=== PATIENT | male | born 1945 | race Caucasian/White ===

== ENCOUNTER 2020-01-25 15:42 | Outpatient (CLI) | payer MEDICARE, MEDICAID, SELFPAY ==
--- NOTE | 2020-01-25 15:53 | CT_ITS ---
WS: [id number] CT CERVICAL SPINE TECHNIQUE: Noncontrast CT of the cervical spine with coronal and sagittal reformatted images. CLINICAL INFORMATION: FRACTURE OF CERVICAL SPINE COMPARISON: None. DLP: 1883.[address] scans at [facility] use at least one of these dose optimization techniques: automat ed exposure control; mA and/or kV adjustment per patient size (includes targeted exams where dose is matched to clinical indication); or iterative reconstruction. FINDINGS: Straightening of the normal cervical lordosis. Slight anterolisthesis C3 on C4 and C4 on C5. Disc spa ce narrowing worse at C5-C7. Normal C1-2 articulation. Normal dens. C2-C3: Disc osteophyte ridging. Mild right and no significant left foraminal narrowing. Spinal canal is patent. C3-C4: Slight anterolisthesis. Mild central canal stenosis. Moderate bilateral bony foraminal narrowi ng. Mild facet arthropathy. C4-C5: Moderate to severe left and no significant right foraminal narrowing. Osteophytic ridging. Mil d central canal stenosis. Mild facet arthropathy. C5-C6: Disc osteophyte complex with endplate ridging. Severe left bony foraminal narrowing. Moderate left facet arthropathy. Spinal canal is patent. C6-C7: Disc osteophyte complex with endplate ridging. Mild left foraminal narrowing. Spinal canal and right foramen are patent. C7-T1: Left eccentric disc osteophytic ridging. Mild left foraminal narrowing. Spinal canal and right foramen are patent. Visualized posterior nasopharynx: Normal. Prevertebral soft tissues: Normal. CT/CT cervical spin wo con* [id number] IMPRESSION: 1. Straightening of the normal cervical lordosis. Slight anterolisthesis C3 on C4 and C4 on C5. 2. No acute fractures. 3. Moderate spondylitic changes with disc space narrowing worse at C5-C7. 4. Severe left foraminal narrowing left C4-C5 and left C5-C6 due to osteophyti c ridging and facet arthropathy. 5. Mild central canal stenosis C3-C4 and C4-C5.
== END 2020-01-25 15:43 | disposition home or self-care (01) ==
LOC: RADWPI 15:53
PROVIDERS: Family Provider Nurse Practitioner Family; PCP Nurse Practitioner Family; Visit Provider Nurse Practitioner Family
DX: S12.9XXA Fracture of neck, unspecified, initial encounter (principal); X58.XXXA Exposure to other specified factors, initial encounter; M47.892 Other spondylosis, cervical region; M48.02 Spinal stenosis, cervical region
CPT/HCPCS: 72125

== ENCOUNTER 2020-07-15 10:16 | Emergency (ER) | payer MEDICARE, MEDICAID, SELFPAY ==
[2020-07-15 10:26] VITALS: BP 177/86; PULSE 98; RESP 20; TEMP 36.6; O2SAT 92; BMI 36.6
--- NOTE | 2020-07-15 10:30 | W.ED.SOB ---
HPI - SOB/Dyspnea General: Chief Complaint: Shortness of Breath/Dyspnea Stated Complaint: SOB Time Seen by Provider: 07/15/20 10:28 History of Present Illness: HPI Narrative: 74-year-old male presents emergency room with complaint of shortness of breath with productive cough for the last 2 months. He states it is been waxing and waning during that time but just recently it seems to be worsening. He was previously seen and evaluated started on albuterol sounds like he was also started on a combination anticholinergic steroid that he was told to use twice a day. He has been using that medicine twice a day although he does not recall the name of it. He also uses albuterol as needed and does get good relief of symptoms from it. He denies a fever. His and son have also been sick with a cough at home. He denies any hemoptysis. MD elicited complaint: shortness of breath and cough Pertinent past history: COPD Onset (ago): month(s) (2) Timing: intermittent Severity: moderate Exacerbating factors: nothing Relieving factors: bronchodilators Known history of: COPD Associated symptoms: Reports chest congestion and cough; Deny abdominal pain, chest pain, diaphoresis, dizziness, extremity pain, fever(s), hemoptysis, lightheadedness, myalgias, nausea, orthopnea, palpitations, paresthesias, polydipsia, polyuria, rash, sense of impending doom, syncope or vomiting Treatment prior to arrival: bronchodilator Review of Systems Const: Denies: fever(s) or diaphoresis ENMT: Denies: throat pain, ear or mastoid pain, nasal discharge or nasal congestion Card: Denies: chest pain, palpitations, lightheadedness, syncope or orthopnea Resp: Reports: chest congestion; Denies: hemoptysis GI: Denies: abdominal pain, nausea or vomiting : Denies: flank pain, dysuria, urinary frequency or urinary urgency Musc: Denies: extremity pain Skin/Breast: Denies: rash or pruritus Neuro: Denies: dizziness Endo: Denies: polyuria or polydipsia PFS ED PFSH: Medical History Allergic rhinitis Chronic sinusitis CKD (chronic kidney disease) COPD (chronic obstructive pulmonary disease) 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 Depression Edema Essential (primary) hypertension Gout Hyperlipemia Idiopathic peripheral neuropathy Nicotine dependence MONTEZ (obstructive sleep apnea) Osteoarthritis Surgical History H/O foot surgery H/O knee surgery History of surgery of head Family History Son Anxiety Psychiatric illness Depression Liver disease Thyroid disease Mother Lung disease Diabetes Hypertension Father Diabetes Brother Diabetes Hypertension Sister Hypertension Other Cancer Social History Smoking and tobacco status: current every day smoker smokeless tobacco Smokeless tobacco user: chewing tobacco Smokeless tobacco details: 0.5 Can Daily x 30 Years Alcohol intake: never Current occupational status: disabled Current gender identity: Male Physical Exam Const: COMMON NORMALS: no acute distress GENERAL APPEARANCE: cooperative and comfortable ORIENTATION/CONSCIOUSNESS: Yes awake, Yes oriented to person, Yes oriented to place and Yes oriented to time HENMT: COMMON NORMALS: normocephalic, atraumatic and hearing grossly normal bilaterally HEAD & SCALP: normocephalic and atraumatic Eye: COMMON NORMALS: Equal, round and reactive pupils present, EOMs intact bilaterally, conjunctivae normal and no scleral icterus CONJUNCTIVA: Yes conjunctivae normal PUPIL: Yes Equal, round and reactive pupils present Neck/C-Spine: COMMON NORMALS: full ROM, no lymphadenopathy, supple and no JVD Lymph: LYMPHATIC: no lymphadenopathy noted and no lymphedema noted Resp: COMMON NORMALS: normal respiratory effort, No retractions, No use of accessory muscles and clear to auscultation bilaterally AUSCULTATION: clear to auscultation bilaterally Cardio: COMMON NORMALS: no JVD, regular rate, regular rhythm and No murmurs present (Cardio) RATE: regular rate RHYTHM: regular rhythm GI: COMMON NORMALS: Soft to palpation and No hepatosplenomegaly present AUSCULTATION: Yes normoactive bowel sounds PALPATION: Yes Soft to palpation, No Tenderness to palpation present (GI), No Guarding due to palpation present (GI) and Yes No hepatosplenomegaly present Extremity: COMMON NORMALS: normal to inspection, capillary refill normal, no clubbing, cyanosis or edema, no calf tenderness and no pedal edema Neuro: SENSORIUM/ORIENTATION: Yes oriented to person, Yes oriented to place and Yes oriented to time Skin: COMMON NORMALS: no rashes or lesions noted GENERAL SKIN EXAM: no rashes or lesions noted Course Vital Signs: Vital signs: Vital Signs Temperature 98.9 F 07/15/20 13:54 Pulse Rate 95 07/15/20 13:54 Respiratory Rate 18 07/15/20 13:54 Blood Pressure 130/90 07/15/20 13:54 Pulse Oximetry 94 07/15/20 13:54 MDM - SOB/Dyspnea MDM Narrative: Medical decision making narrative: Reviewed labs and imaging with the patient. We will add doxycycline Medrol Dosepak continue albuterol as needed return if has problems follow-up with his primary care doctor next week. Lab Data: Labs: Lab Results 07/15/20 07/15/20 07/15/20 Range/Units 10:50 10:50 11:26 WBC 7.6 (4.0-10.0) 10^3/ uL RBC 4.69 (4.1-5.3) 10^6/u L Hgb 14.5 (11.7-16.6) g/dL Hct 44.6 (42.0-52.0) % MCV 95.1 H (80-94) fL MCH 30.9 (28.0-34.0) pg MCHC 32.5 (30.0-36.0) g/dL RDW 12.7 (12.1-15.1) % Plt Count 210 (130-400) 10^3/c mm MPV 10.6 H (7.4-10.4) fL Neut % (Auto) 72.1 % Lymph % (Auto) 18.1 % Hancock % (Auto) 7.7 % Eos % (Auto) 1.0 % Baso % (Auto) 0.7 % Neut # (Auto) 5.49 (1.8-7.7) 10^3/u L Lymph # (Auto) 1.4 (0.8-4.8) 10^3/u L Hancock # (Auto) 0.6 (0.2-0.9) 10^3/u L Eos # (Auto) 0.1 (0.0-0.8) 10^3/u L Baso # (Auto) 0.1 (0.0-0.1) 10^3/u L Nucleated RBC % (a uto) 0 % Nucleated RBCs # 0.0 /100WBC Sodium 139 (136-145) mmol/L Potassium 4.5 (3.5-5.1) mmol/L Chloride 102 (98-107) mmol/L Carbon Dioxide 30 H (22-29) mmol/L Anion Gap 11.5 (5-19) BUN 12 (8-23) mg/dL Creatinine 1.3 H (0.7-1.2) mg/dL GFR Calculation Not Reportable Glucose 111 (65-115) mg/dL Calculated Osmolal ity 285 (285-295) mOsm/k g Calcium 9.4 (8.5-10.5) mg/dL Total Bilirubin 0.3 (0.15-1.2) mg/dL AST 28 (0-40) U/L ALT 35 (0-41) U/L Alkaline Phosphata se 186 H (40-130) IU/L Total Protein 7.3 (6.6-8.7) g/dL Albumin 3.9 (3.5-5.2) g/dL Globulin 3.4 (1.3-4.6) g/dL Urine Color Yellow (Yellow) Urine Appearance Clear (CLEAR) Urine pH 7 (5-7) Ur Specific Gravit y 1.005 (1.005-1.030) Urine Protein Neg (Negative) Urine Glucose (UA) Norm (Normal) Urine Ketones Negative (Negative) Urine Blood Neg (Negative) Urine Nitrate Negative (Negative) Urine Bilirubin Neg (NEGATIVE) Urine Urobilinogen Norm (Negative) mg/dL Ur Leukocyte Olga Lidia ase Negative (Negative) Discharge Plan Discharge Patient Disposition: Home Clinical Impression: Acute exacerbation of chronic obstructive airways disease Condition: Stable Prescriptions: New doxycycline hyclate 100 mg capsule 100 mg PO BID 10 Days Qty: 20 RF: 0 Medrol (Simón) 4 mg tablets,dose pack See Rx Instructions .ROUTE .COMPLEX Qty: 21 RF: 0 No Action ketotifen fumarate [Alaway] 0.025 % (0.035 %) drops 1 drop ophthalmic (eye) BID RF: 0 allopurinol 300 mg tablet 150 mg PO DAILY RF: 0 aspirin [Adult Aspirin Regimen] 81 mg tablet,delayed release (DR/EC) 81 mg PO DAILY RF: 0 bumetanide 2 mg tablet 2 mg PO DAILY RF: 0 diclofenac sodium 75 mg tablet,delayed release (DR/EC) 75 mg PO BID RF: 0 doxazosin 4 mg tablet 4 mg PO DAILY RF: 0 gabapentin 600 mg tablet 600 mg PO TID RF: 0 metoprolol tartrate 50 mg tablet 50 mg PO BID RF: 0 polyethylene glycol 3350 [Miralax] 17 gram/dose powder 17 gm PO DAILY RF: 0 misoprostol 200 mcg tablet 400 mcg PO BID RF: 0 montelukast [Singulair] 10 mg tablet 10 mg PO DAILY RF: 0 paroxetine HCl 20 mg tablet 20 mg PO DAILY RF: 0 potassium chloride 10 mEq capsule, extended release 10 meq PO DAILY RF: 0 albuterol sulfate [ProAir HFA] 90 mcg/actuation HFA aerosol inhaler 2 puff INHALATION Q4H PRN (Reason: Shortness Of Breath) RF: 0 rosuvastatin 20 mg tablet 20 mg PO DAILY RF: 0 Spiriva with HandiHaler 18 mcg capsule, w/inhalation device 1 cap INHALATION DAILY RF: 0 tramadol 50 mg tablet 50 mg PO Q8H PRN (Reason: Pain) RF: 0 fluticasone propion-salmeterol [Wixela Inhub] 250-50 mcg/dose blister with device 1 inh INHALATION BID RF: 0 Vitamin B-12 1,000 mcg Tablet See Rx Instructions .ROUTE .COMPLEX RF: 0 Discharge Orders: Discharge Order (Routine); Ordered 07/15/20 Ordered By: Yaw Gasca Referrals: Juany Velazquez, NUCLEAR CRITICALITY SAFETY ENGINEER-C [Primary Care Provider] - Discharge Diet: Usual diet Discharge Activity: Resume usual activity Activity Restrictions/Additional Instructions: Case management will call you with a referral to pulmonology Discharge Date/Time: 07/15/20 13:57 Coding Level of Care Code ED Grain Manager for Chg Fwd Exam Comprehensive
[2020-07-15 10:34] VITALS: BP 117/86; PULSE 95; RESP 18; TEMP 36.8; O2SAT 95
--- NOTE | 2020-07-15 10:39 | ECG_ITS ---
[facility] Test Date: 2020-07-15 Pat Name: Marcelo Loyola Department: Room: Gender: Male Volunteer Manager: : 1945 Requested By: Yaw Chapa Order Number: [id number] Shannon MD: Elba Polo M.D. Measurements Intervals [place] Rate: 93 P: 6 GA: 177 QRS: -4 QRSD: 94 T: 63 QT: 344 QTc: 429 Interpretive Statements SINUS RHYTHM NONSPECIFIC T-WAVE ABNORMALITY No previous ECG available for comparison Electronically Signed On 07-15-2020 11:32:02 CDT by Elba Polo M.D. [id number]
--- NOTE | 2020-07-15 10:40 | XR_ITS ---
WS: [id number] Portable AP upright chest, 07/15/2020 Clinical Data: dyspnea/cough Comparison: None. Findings: No nodules, masses or effusions are seen. The heart is normal. The pulmonary vascularity is not increased. No pneumonia or pneumothorax is seen. There is patchy atelectasis along with slight v olume loss in the right lower lobe. There may be a small right effusion. Aortic arch and descending a yomaira are tortuous. Degenerative change of the shoulders is present. XR/XR chest 1V portable [id number] Impression: 1. Patchy atelectasis and volume loss in the right lung base. 2. Recommend follow-up PA and lateral chest in one day.
[2020-07-15 10:58] LABS: Basophils # 0.1 10^3/uL (0.0-0.1); Basophils % 0.7 %; Eosinophils # 0.1 10^3/uL (0.0-0.8); Hematocrit 44.6 % (42.0-52.0); Hemoglobin 14.5 g/dL (11.7-16.6); Lymphocytes # 1.4 10^3/uL (0.8-4.8); Lymphocytes % 18.1 %; Mean Corpuscular HGB Conc 32.5 g/dL (30.0-36.0); Mean Corpuscular Hemoglobin 30.9 pg (28.0-34.0); Mean Corpuscular Volume 95.1 fL (80-94); Mean Platelet Volume 10.6 fL (7.4-10.4); Monocytes # 0.6 10^3/uL (0.2-0.9); Monocytes % 7.7 %; Neutrophils # 5.49 10^3/uL (1.8-7.7); Neutrophils % 72.1 %; Nucleated Red Blood Cells % 0 %; Platelet Count 210 10^3/cmm (130-400); Red Blood Count 4.69 10^6/uL (4.1-5.3); Red Cell Distribution Width 12.7 % (12.1-15.1); White Blood Count 7.6 10^3/uL (4.0-10.0)
--- NOTE | 2020-07-15 11:07 | CT_ITS ---
WS: [id number] CTA OF THE CHEST WITH PULMONARY EMBOLISM PROTOCOL TECHNIQUE: High-resolution contrast enhanced CTA of the chest with coronal and sagittal reformatted i mages with pulmonary embolism protocol. MIP images are also reviewed. CLINICAL INFORMATION: dyspnea COMPARISON: None. DLP: 845.[address] scans at [facility] use at least one of these dose optimization techniques: automat ed exposure control; mA and/or kV adjustment per patient size (includes targeted exams where dose is matched to clinical indication); or iterative reconstruction. FINDINGS:Images degraded by respiratory motion and suboptimal bolus. Proximal main pulmonary arteries are normal. Segmental and subsegmental pulmonary arteries are subopt imally visualized but appear patent. No evidence of pulmonary embolus. Normal caliber thoracic aorta. Aortic calcification. Coronary calcification. Subsegmental atelectasis right lower lobe. Mild chronic emphysematous changes. A few calcified granul omas right lower lobe. No mediastinal or hilar lymphadenopathy. No axillary lymphadenopathy. Normal liver. Gallbladder is contracted. Splenic granulomas. Small esophageal hiatal hernia. CT/CT angio chest PE protcl [id number] IMPRESSION: 1. Proximal main pulmonary arteries are patent. Segmental and subsegmental pul monary arteries suboptimally visualized. No evidence of pulmonary embolus proxi yee. 2. Elevation hemidiaphragm with volume loss right lung base. Subsegmental atel ectasis right lower lobe. 3. No acute pulmonary infiltrates. 4. Mild chronic emphysematous changes. 5. No mediastinal or hilar lymphadenopathy. Notified Yaw Gasca DO at 07/15/2020 1:26 PM.
[2020-07-15 11:24] LABS: Alanine Aminotransferase 35 U/L (0-41); Albumin Level 3.9 g/dL (3.5-5.2); Alkaline Phosphatase 186 IU/L (40-130); Anion Gap 11.5 (5-19); Aspartate Amino Transferase 28 U/L (0-40); Blood Urea Nitrogen 12 mg/dL (8-23); Calcium 9.4 mg/dL (8.5-10.5); Carbon Dioxide 30 mmol/L (22-29); Chloride 102 mmol/L (98-107); Globulin 3.4 g/dL (1.3-4.6); Glucose 111 mg/dL (65-115); Osmolality Calculated 285 mOsm/kg (285-295); Potassium 4.5 mmol/L (3.5-5.1); Sodium 139 mmol/L (136-145); Total Bilirubin 0.3 mg/dL (0.15-1.2); Total Protein 7.3 g/dL (6.6-8.7)
[2020-07-15 11:32] LABS: Add Urine Microscopic? NO
[2020-07-15 11:36] LABS: Bilirubin Urine Neg (NEGATIVE); Blood Urine Neg (Negative); Glucose Urine UA Norm (Normal); Ketones Urine Negative (Negative); Leukocyte Esterase Urine Negative (Negative); Nitrate Urine Negative (Negative); Protein Urine Neg (Negative); Specific Gravity, Urine 1.005 (1.005-1.030); Urine Appearance Clear (CLEAR); Urine Color Yellow (Yellow); Urobilinogen Urine Norm (Negative); pH Urine 7 (5-7)
[2020-07-15 11:45] VITALS: BP 121/87; PULSE 95; RESP 20; TEMP 36.8; O2SAT 95
[2020-07-15 12:30] VITALS: BP 120/70; PULSE 80; RESP 16; O2SAT 95
[2020-07-15] MEDS: iodixanol 320 mg/mL 100mL Btl IV (12:40)
[2020-07-15 13:14] VITALS: BP 130/86; PULSE 90; RESP 18; O2SAT 93
[2020-07-15 13:54] VITALS: BP 130/90; PULSE 95; RESP 18; TEMP 37.2; O2SAT 94
--- NOTE | 2020-07-18 11:06 | DCPLANNER ---
field marketing manager had message to schedule a follow up appointment for patient with pulmonolgy. field marketing manager called [facility], spoke with Kya, gave clinic patients information, a follow up appointment was scheduled for Monday July 20, 2020 at 8:45. field marketing manager spoke with patient and gave him the appointment information. Patient stated that he would attend the appointment.
--- NOTE | 2020-07-19 08:47 | PC.NURSE ---
Patient called and placed on Levaquin 750 mg daily for [address] Gasca after reviewing patients sputum culture. Prescription sent to [facility] in [place], [place].
--- NOTE | 2020-08-16 08:09 | DCPLANNER ---
Patient had a follow up appointment scheduled for 07.20.20 with [facility] - patient did attend the appointment.
== END 2020-07-15 13:57 | disposition home or self-care (01) ==
PROVIDERS: Emergency Provider Family Medicine; PCP Nurse Practitioner Family
DX: J44.1 Chronic obstructive pulmonary disease with (acute) exacerbation (principal); Z79.82 Long term (current) use of aspirin; I10 Essential (primary) hypertension; E78.5 Hyperlipidemia, unspecified; F17.220 Nicotine dependence, chewing tobacco, uncomplicated
CPT/HCPCS: 12345; 71045; 71275; 80053; 81003; 85025; 87070; 87205; 93005; 99284; Q9967

== ENCOUNTER 2020-07-20 10:59 | Outpatient (CLI) | payer MEDICARE, MEDICAID, SELFPAY ==
--- NOTE | 2020-07-20 11:04 | XRR_ITS ---
PROCEDURE INFORMATION: Exam: XR Chest, 2 Views Exam date and time: 07/20/2020 11:22 AM Age: 74 years old Clinical indication: Patient HX: Shortness of breath; . HX of copd with exacerbation; Additional info: Pneumonia TECHNIQUE: Imaging protocol: XR of the chest Views: 2 views. COMPARISON: CR XR chest 1V portable [id number] 07/15/2020 10:50 AM FINDINGS: Lungs: Interstitial prominence and chronic granulomatous disease. Subsegmental right basilar atelectasis in association with asymmetric elevation of the right hemidiaphragm. Pleural space: No significant pleural effusion. Heart/Mediastinum: No cardiomegaly. Vasculature: Ectasia of the thoracic aorta. Bones/joints: osteopenia and degenerative change. XR/XR chest 2V* [id number] IMPRESSION: Subsegmental right basilar atelectasis in association with asymmetric elevation of the right hemidiaphragm.
== END 2020-07-20 11:00 | disposition home or self-care (01) ==
LOC: RAD 11:03
PROVIDERS: PCP Nurse Practitioner Family; Visit Provider Internal Medicine Pulmonary Disease
DX: J18.9 Pneumonia, unspecified organism (principal); J98.11 Atelectasis
CPT/HCPCS: 71046

== ENCOUNTER → 2020-08-12 11:49 | Outpatient (BNVA) | payer MEDICARE, MEDICAID, SELFPAY | PROVIDERS: PCP Nurse Practitioner Family; Visit Provider Internal Medicine | DX: J44.9 Chronic obstructive pulmonary disease, unspecified (principal); Z20.828 Contact with and (suspected) exposure to other viral communicable diseases | CPT/HCPCS: 87635 ==

== ENCOUNTER 2020-08-26 18:07 | Emergency (ER) | payer MEDICARE, MEDICAID, SELFPAY ==
[2020-08-26] VITALS (7 sets, daily range): BP systolic 119–152; BP diastolic 59–103; PULSE 70–83; RESP 14–22; TEMP 36.6; O2SAT 91–94; BMI 35.4
--- NOTE | 2020-08-26 21:35 | XRR_ITS ---
PROCEDURE INFORMATION: Exam: XR Chest, 1 View Exam date and time: 08/26/2020 9:36 PM Age: 75 years old Clinical indication: Shortness of breath; Patient HX: SOB; Additional info: Cough, SOB TECHNIQUE: Imaging protocol: XR of the chest Views: 1 view. COMPARISON: CR XR chest 2V* [id number] 07/20/2020 11:15 AM FINDINGS: Lungs: Unremarkable. No consolidation. Pleural space: Large right pleural effusion. Heart/Mediastinum: Cardiomegaly. Bones/joints: Unremarkable. XR/XR chest 1V portable [id number] IMPRESSION: 1. Large right pleural effusion. 2. Cardiomegaly.
--- NOTE | 2020-08-26 21:35 | ECG_ITS ---
[facility] Test Date: 2020-08-26 Pat Name: Marcelo Loyola Department: Room: Gender: Male Slag Skimmer: : 1945 Requested By: Bre Chapa Order Number: [id number] Shannon MD: Elba Polo M.D. Measurements Intervals [employer] Rate: 69 P: 89 CT: 189 QRS: 12 QRSD: 102 T: 73 QT: 365 QTc: 392 Interpretive Statements SINUS RHYTHM WITH OCCASIONAL SUPRAVENTRICULAR PREMATURE COMPLEXES NONSPECIFIC T-WAVE ABNORMALITY Compared to ECG 07/15/2020 10:55:30 No significant changes Electronically Signed On 08-27-2020 17:57:12 CDT by Elba Polo M.D. [id number]
[2020-08-26 22:07] LABS: Basophils # 0.1 10^3/uL (0.0-0.1); Basophils % 0.7 %; Eosinophils # 0.1 10^3/uL (0.0-0.8); Eosinophils % 1.5 %; Hematocrit 43.7 % (42.0-52.0); Hemoglobin 14.1 g/dL (11.7-16.6); Lymphocytes # 1.9 10^3/uL (0.8-4.8); Lymphocytes % 21.2 %; Mean Corpuscular HGB Conc 32.3 g/dL (30.0-36.0); Mean Corpuscular Hemoglobin 30.7 pg (28.0-34.0); Mean Corpuscular Volume 95.2 fL (80-94); Mean Platelet Volume 10.5 fL (7.4-10.4); Monocytes # 0.8 10^3/uL (0.2-0.9); Monocytes % 8.6 %; Neutrophils # 6.22 10^3/uL (1.8-7.7); Neutrophils % 67.8 %; Nucleated Red Blood Cells % 0 %; Platelet Count 206 10^3/cmm (130-400); Red Blood Count 4.59 10^6/uL (4.1-5.3); Red Cell Distribution Width 12.9 % (12.1-15.1); White Blood Count 9.2 10^3/uL (4.0-10.0)
--- NOTE | 2020-08-26 22:39 | ED_ITS ---
HPI - SOB/Dyspnea General: Chief Complaint: Shortness of Breath/Dyspnea Stated Complaint: SOB Time Seen by Provider: 08/26/20 21:04 History of Present Illness: HPI Narrative: This patient is a 75-year-old male presenting today with shortness of breath. He said he thinks he has pneumonia. He has not had a fever. He coughs up yellow phlegm. This been going on for several weeks. He said he actually was in the hospital with pneumonia in June and feels like he is never really gotten better. His notes that he got little better while he was on the antibiotics but then worsened again. He has no known exposures to COVID. His family members were around him and had fevers but they had negative COVID tests and were diagnosed with pneumonia. He denies chest pain. He has had some swelling in his legs in the past but not currently. He takes a fluid pill. He sees Dr. Gonsalez for his heart. He says his only heart problem is that his heart rate is slow at times. MD elicited complaint: shortness of breath and cough Pertinent past history: pneumonia Severity: moderate Exacerbating factors: lying flat and exertion Relieving factors: upright position Associated symptoms: Deny abdominal pain, chest pain, fever(s), nausea or vomiting Review of Systems General: Reports: 10 or more systems reviewed and unremarkable except in HPI and below Const: Denies: fever(s), chills, fatigue or malaise Eyes: Denies: change in vision ENMT: Denies: odynophagia Card: Denies: chest pain or swelling of feet/ankles Resp: Reports: dyspnea and productive cough; Denies: non-productive cough GI: Denies: abdominal pain, nausea or vomiting : Denies: flank pain Musc: Denies: neck pain or back pain Skin/Breast: Denies: rash Neuro: Denies: headache(s), numbness in extremities or weakness in extremities Stalin/Lymph: Denies: easy bruising or easy bleeding PFSH ED PFSH: Medical History Allergic rhinitis Chronic sinusitis CKD (chronic kidney disease) COPD (chronic obstructive pulmonary disease) Coronary arteriosclerosis in [place] artery Depression Edema Essential (primary) hypertension Gout Hyperlipemia Idiopathic peripheral neuropathy Nicotine dependence MONTEZ (obstructive sleep apnea) Osteoarthritis Surgical History H/O foot surgery H/O knee surgery History of surgery of head Family History Son Anxiety Psychiatric illness Depression Liver disease Thyroid disease Mother Lung disease Diabetes Hypertension Father Diabetes Brother Diabetes Hypertension Sister Hypertension Other Cancer Social History Smoking and tobacco status: current every day smoker smokeless tobacco Smokeless tobacco user: chewing tobacco Smokeless tobacco details: 0.5 Can Daily x 30 Years - Hx of 5 ciggs daily x 15 years - Quit in 1979 Alcohol intake: never Lives independently: Yes Household members: spouse Marital status: Current occupational status: disabled History of recent travel: No Current gender identity: Male Physical Exam Const: COMMON NORMALS: no acute distress, patient oriented x3, no limitations and alert GENERAL APPEARANCE: cooperative and comfortable HENMT: HEAD & SCALP: normal to inspection FACE & SINUS: normal facial exam Eye: GENERAL EYE: appearance normal, both eyes and all related structures Neck/C-Spine: COMMON NORMALS: supple, no meningeal signs and no JVD Chest: COMMONS NORMALS: normal inspection of the chest Resp: COMMON NORMALS: No use of accessory muscles and clear to auscultation bilaterally EFFORT & INSPECTION: Yes tachypneic AUSCULTATION: clear to auscultation bilaterally and diminished lung sounds on the right Cardio: COMMON NORMALS: no JVD, regular rate, regular rhythm and No murmurs present (Cardio) RATE: regular rate RHYTHM: regular rhythm GI: COMMON NORMALS: Normal to inspection, nondistended, normoactive bowel sounds present, Soft to palpation and non-tender INSPECTION: Yes normal to inspection AUSCULTATION: Yes normoactive bowel sounds PALPATION: Yes Soft to palpation Back/Pelvis: COMMON NORMALS: thoracic and lumbar spine normal to inspection Extremity: COMMON NORMALS: normal to inspection Neuro: COMMON NORMALS: patient oriented x3, moves all extremities, no focal motor deficits and no sensory deficits noted SENSORIUM/ORIENTATION: Yes alert MENINGEAL SIGNS: Yes no meningeal signs Psych: COMMON NORMALS: mental status grossly normal, cooperative and normal affect Skin: COMMON NORMALS: no rashes or lesions noted and turgor normal GENERAL SKIN EXAM: no rashes or lesions noted and turgor normal Course ED course: Patient's chest x-ray shows a right pleural effusion. His labs are still pending. I spoke with him about whether he felt like his breathing was bad enough to be admitted to the hospital and he said no. His agreed. Await for the rest of his test results but as long as there is nothing unexpected there we can probably let him go home and plan for close outpatient follow-up. He has seen the medical bill processor here before. Vital Signs: Vital signs: Vital Signs Temperature 98.1 F 08/27/20 01:49 Pulse Rate 76 08/27/20 01:49 Respiratory Rate 20 H 08/27/20 01:49 Blood Pressure 128/90 08/27/20 01:49 Pulse Oximetry 93 08/27/20 01:49 MDM - SOB/Dyspnea Lab Data: Labs: Lab Results 08/26/20 08/26/20 08/26/20 Range/Units 21:57 21:57 21:57 WBC 9.2 (4.0-10.0) 10^3/ uL RBC 4.59 (4.1-5.3) 10^6/u L Hgb 14.1 (11.7-16.6) g/dL Hct 43.7 (42.0-52.0) % MCV 95.2 H (80-94) fL MCH 30.7 (28.0-34.0) pg MCHC 32.3 (30.0-36.0) g/dL RDW 12.9 (12.1-15.1) % Plt Count 206 (130-400) 10^3/c mm MPV 10.5 H (7.4-10.4) fL Neut % (Auto) 67.8 % Lymph % (Auto) 21.2 % [place] % (Auto) 8.6 % Eos % (Auto) 1.5 % Baso % (Auto) 0.7 % Neut # (Auto) 6.22 (1.8-7.7) 10^3/u L Lymph # (Auto) 1.9 (0.8-4.8) 10^3/u L [place] # (Auto) 0.8 (0.2-0.9) 10^3/u L Eos # (Auto) 0.1 (0.0-0.8) 10^3/u L Baso # (Auto) 0.1 (0.0-0.1) 10^3/u L Nucleated RBC % (a uto) 0 % Nucleated RBCs # 0.0 /100WBC Sodium 139 (136-145) mmol/L Potassium 4.1 (3.5-5.1) mmol/L Chloride 101 (98-107) mmol/L Carbon Dioxide 27 (22-29) mmol/L Anion Gap 15.1 (5-19) BUN 14 (8-23) mg/dL Creatinine 1.3 H (0.7-1.2) mg/dL GFR Calculation Not Reportable Glucose 99 (65-115) mg/dL Calculated Osmolal ity 289 (285-295) mOsm/k g Calcium 9.7 (8.5-10.5) mg/dL Total Bilirubin 0.3 (0.15-1.2) mg/dL AST 18 (0-40) U/L ALT 14 (0-41) U/L Alkaline Phosphata se 185 H (40-130) IU/L Troponin T Baselin e 21 H (0-15) ng/L Troponin T 120 Min solomon Delta Troponin T NT-Pro-B Natriuret Pep 161 H (0-125) pg/mL Total Protein 6.7 (6.6-8.7) g/dL Albumin 4.1 (3.5-5.2) g/dL Globulin 2.6 (1.3-4.6) g/dL 08/26/20 08/27/20 Range/Units 23:37 00:25 WBC (4.0-10.0) 10^3/ uL RBC (4.1-5.3) 10^6/u L Hgb (11.7-16.6) g/dL Hct (42.0-52.0) % MCV (80-94) fL MCH (28.0-34.0) pg MCHC (30.0-36.0) g/dL RDW (12.1-15.1) % Plt Count (130-400) 10^3/c mm MPV (7.4-10.4) fL Neut % (Auto) % Lymph % (Auto) % [place] % (Auto) % Eos % (Auto) % Baso % (Auto) % Neut # (Auto) (1.8-7.7) 10^3/u L Lymph # (Auto) (0.8-4.8) 10^3/u L [place] # (Auto) (0.2-0.9) 10^3/u L Eos # (Auto) (0.0-0.8) 10^3/u L Baso # (Auto) (0.0-0.1) 10^3/u L Nucleated RBC % (a uto) % Nucleated RBCs # /100WBC Sodium (136-145) mmol/L Potassium (3.5-5.1) mmol/L Chloride (98-107) mmol/L Carbon Dioxide (22-29) mmol/L Anion Gap (5-19) BUN (8-23) mg/dL Creatinine (0.7-1.2) mg/dL GFR Calculation Glucose (65-115) mg/dL Calculated Osmolal ity (285-295) mOsm/k g Calcium (8.5-10.5) mg/dL Total Bilirubin (0.15-1.2) mg/dL AST (0-40) U/L ALT (0-41) U/L Alkaline Phosphata se (40-130) IU/L Troponin T Baselin e (0-15) ng/L Troponin T 120 Min solomon Cancelled 18.32 H Delta Troponin T Cancelled -2.68 L NT-Pro-B Natriuret Pep (0-125) pg/mL Total Protein (6.6-8.7) g/dL Albumin (3.5-5.2) g/dL Globulin (1.3-4.6) g/dL Discharge Plan Discharge Patient Disposition: Home Clinical Impression: Pleural effusion on right Condition: Stable Prescriptions: No Action ketotifen fumarate [Alaway] 0.025 % (0.035 %) drops 1 drop ophthalmic (eye) BID RF: 0 allopurinol 300 mg tablet 150 mg PO DAILY RF: 0 aspirin [Adult Aspirin Regimen] 81 mg tablet,delayed release (DR/EC) 81 mg PO DAILY RF: 0 bumetanide 2 mg tablet 2 mg PO DAILY RF: 0 diclofenac sodium 75 mg tablet,delayed release (DR/EC) 75 mg PO BID RF: 0 doxazosin 4 mg tablet 4 mg PO DAILY RF: 0 gabapentin 600 mg tablet 600 mg PO TID RF: 0 metoprolol tartrate 50 mg tablet 50 mg PO BID RF: 0 polyethylene glycol 3350 [Miralax] 17 gram/dose powder 17 gm PO DAILY RF: 0 misoprostol 200 mcg tablet 400 mcg PO BID RF: 0 montelukast [Singulair] 10 mg tablet 10 mg PO DAILY RF: 0 paroxetine HCl 20 mg tablet 20 mg PO DAILY RF: 0 potassium chloride 10 mEq capsule, extended release 10 meq PO DAILY RF: 0 albuterol sulfate [ProAir HFA] 90 mcg/actuation HFA aerosol inhaler 2 puff INHALATION Q4H PRN (Reason: Shortness Of Breath) RF: 0 rosuvastatin 20 mg tablet 20 mg PO DAILY RF: 0 Spiriva with HandiHaler 18 mcg capsule, w/inhalation device 1 cap INHALATION DAILY RF: 0 tramadol 50 mg tablet 50 mg PO Q8H PRN (Reason: Pain) RF: 0 fluticasone propion-salmeterol [Wixela Inhub] 250-50 mcg/dose blister with device 1 inh INHALATION BID RF: 0 levofloxacin 750 mg tablet 750 mg PO DAILY RF: 0 Trelegy Ellipta 100-62.5-25 mcg blister with device 1 inh INHALATION DAILY Qty: 28 RF: 3 Vitamin B-12 1,000 mcg Tablet See Rx Instructions .ROUTE .COMPLEX RF: 0 Medrol (Simón) 4 mg tablets,dose pack See Rx Instructions .ROUTE .COMPLEX Qty: 21 RF: 0 Discharge Orders: Discharge Order (Routine); Ordered 08/27/20 Ordered By: Roslyn Cabrera Referrals: Juany Velazquez FNP-C [Primary Care Provider] - Nan Qureshi MD [Physician] - 4-7 days Discharge Diet: Usual diet Discharge Activity: Resume usual activity Patient Instructions: Pleural Effusion (ED) Activity Restrictions/Additional Instructions: Take it easy for the next few days. Return to the ER if having increasing difficulty breathing, fever, chest pain. You will need to follow-up with the medical bill processor within a week for further evaluation and treatment of the fluid collection on the right side of your chest. Someone should contact you to schedule an appointment on Saturday. Discharge Date/Time: 08/27/20 01:50 Coding Level of Care Code ED Special Projects Coordinator for Chg Fwd Exam Comprehensive
[2020-08-26 22:43] LABS: Troponin(5th) Baseline 21 ng/L (0-15)
[2020-08-26 22:52] LABS: Alanine Aminotransferase 14 U/L (0-41); Albumin Level 4.1 g/dL (3.5-5.2); Alkaline Phosphatase 185 IU/L (40-130); Anion Gap 15.1 (5-19); Aspartate Amino Transferase 18 U/L (0-40); Blood Urea Nitrogen 14 mg/dL (8-23); Calcium 9.7 mg/dL (8.5-10.5); Carbon Dioxide 27 mmol/L (22-29); Chloride 101 mmol/L (98-107); Creatinine Clr Calc Pharmacy 71.1491; Globulin 2.6 g/dL (1.3-4.6); Glucose 99 mg/dL (65-115); NT Pro B Type Natriuretic Pept 161 pg/mL (0-125); Osmolality Calculated 289 mOsm/kg (285-295); Potassium 4.1 mmol/L (3.5-5.1); Sodium 139 mmol/L (136-145); Total Bilirubin 0.3 mg/dL (0.15-1.2); Total Protein 6.7 g/dL (6.6-8.7)
--- NOTE | 2020-08-26 23:35 | ECG_ITS ---
[facility] Test Date: 2020-08-26 Pat Name: Marcelo Loyola Department: Room: Gender: Male Stumper Feller: : 1945 Requested By: Bre Chapa Order Number: [id number] Shannon MD: Elba Polo M.D. Measurements Intervals [place] Rate: 74 P: 63 DE: 196 QRS: 15 QRSD: 89 T: 65 QT: 359 QTc: 399 Interpretive Statements SINUS RHYTHM WITH OCCASIONAL VENTRICULAR PREMATURE COMPLEXES NONSPECIFIC T-WAVE ABNORMALITY Compared to ECG 08/26/2020 22:01:52 Ventricular premature complex(es) now present T-wave abnormality still present Electronically Signed On 08-27-2020 18:11:07 CDT by Elba Polo M.D. [id number]
[2020-08-27 00:26] VITALS: BP 132/59; PULSE 71; RESP 17; O2SAT 93
[2020-08-27 00:45] LABS: Troponin 5 2HR 18.32 ng/L (0-15)
[2020-08-27 00:46] LABS: Troponin 5 2HR Delta -2.68 ABS# (0-10)
[2020-08-27 01:49] VITALS: BP 128/90; PULSE 76; RESP 20; TEMP 36.7; O2SAT 93
--- NOTE | 2020-08-29 12:53 | DCPLANNER ---
atm manager had message to schedule a follow up appointment for patient with [facility]. atm manager called [facility], spoke with Racquel, gave clinic patients information. A follow up appointment was scheduled for , September 08, 2020 at 9:[address] Guerra. Patient is aware of appointment.
--- NOTE | 2020-09-09 18:13 | DCPLANNER ---
Patient had a follow up appointment scheduled for 09.08.20 with [facility] - patient did attend appointment.
== END 2020-08-27 01:50 | disposition home or self-care (01) ==
PROVIDERS: Emergency Provider Emergency Medicine; PCP Nurse Practitioner Family
DX: J90 Pleural effusion, not elsewhere classified (principal); Z79.82 Long term (current) use of aspirin; F17.220 Nicotine dependence, chewing tobacco, uncomplicated; J44.9 Chronic obstructive pulmonary disease, unspecified; I25.10 Atherosclerotic heart disease of native coronary artery without angina pectoris; I10 Essential (primary) hypertension; E78.5 Hyperlipidemia, unspecified
CPT/HCPCS: 12345; 71045; 80053; 83880; 84484; 85025; 93005; 99283

== ENCOUNTER 2020-09-08 10:41 | Outpatient (CLI) | payer MEDICARE, MEDICAID, SELFPAY ==
--- NOTE | 2020-09-08 10:53 | XR_ITS ---
WS: [id number] Portable AP upright chest, 09/08/2020 Clinical Data: pneumonia Comparison: Portable chest, 08/26/2020. Findings: There is a moderate right pleural effusion. No nodules or masses are seen. The heart may be normal in size but the right cardiac border is obscured.. The pulmonary vascularity is not increased . No pneumonia or pneumothorax is seen. The aortic arch shows tortuosity as does the descending aorta . Bilateral osteoarthritic change of both shoulders is severe. XR/XR chest 2V* [id number] Impression: 1. Moderate right pleural effusion with elevation of the right diaphragm. 2. Atherosclerosis.
== END 2020-09-08 10:42 | disposition home or self-care (01) ==
LOC: RAD 10:47
PROVIDERS: PCP Nurse Practitioner Family; Visit Provider Internal Medicine Pulmonary Disease
DX: J18.9 Pneumonia, unspecified organism (principal); J90 Pleural effusion, not elsewhere classified; I70.90 Unspecified atherosclerosis
CPT/HCPCS: 71046

== ENCOUNTER → 2020-09-19 15:26 | Outpatient (BNVA) | payer MEDICARE, MEDICAID, SELFPAY | PROVIDERS: PCP Nurse Practitioner Family; Visit Provider Internal Medicine Cardiovascular Disease | DX: I50.33 Acute on chronic diastolic (congestive) heart failure (principal); R06.02 Shortness of breath; I10 Essential (primary) hypertension | CPT/HCPCS: 80048; 83880 ==

== ENCOUNTER 2020-11-23 12:44 | Outpatient (CLI) | payer MEDICARE, MEDICAID, SELFPAY ==
--- NOTE | 2020-11-23 13:01 | USCV_ITS ---
Marcelo Loyola Age: 75 Gender: M : 1945 Exam Date: 11/23/2020 13:18 Ordering Phys: Teressa Torre MD ([email or web address]) Technologist: Rito Lipscomb Exam Location: [facility] [place] Indication: SOB BP: 125 / 85 HR: 57 Rhythm: Sinus Technical Quality: Suboptimal MEASUREMENTS (Male / Female) Normal Values 2D ECHO LV Diastolic Diameter PLAX 4.9 cm 4.2 - 5.9 / 3.9 - 5.3 cm LV Systolic Diameter PLAX 4.0 cm IVS Diastolic Thickness 1.3 cm 0.6 - 1.0 / 0.6 - 0.9 cm IVS Systolic Thickness 1.5 cm LVPW Diastolic Thickness 1.8 cm 0.6 - 1.0 / 0.6 - 0.9 cm LVPW Systolic Thickness 2.5 cm LVOT Diameter 2.3 cm LV Ejection Fraction 2D Teich 40.3 % LV Ejection Fraction MOD 2C 60.3 % LV Ejection Fraction 2C AL 61.5 % LA Diameter 3.8 cm LA Width 4.5 cm LA Height 4.4 cm RA Width 3.8 cm RA Height 3.2 cm Aorta at Sinotubular Diameter 3.5 cm M-MODE LV Diastolic Diameter MM 5.5 cm 4.2 - 5.9 / 3.9 - 5.3 cm LV Systolic Diameter MM 6.3 cm LV Ejection Fraction MM Teich -36.5 % IVS Diastolic Thickness MM 2.1 cm 0.6 - 1.0 / 0.6 - 0.9 cm IVS Systolic Thickness MM 1.9 cm LVPW Diastolic Thickness MM 5.6 cm 0.6 - 1.0 / 0.6 - 0.9 cm LVPW Systolic Thickness MM 2.0 cm Aortic Annulus Diameter 3.3 cm LA Ao Ratio MM 1.3 MV E Point Septal Separation 1.1 cm DOPPLER AV Peak Velocity 129.0 cm/s LVOT Peak Velocity 79.0 cm/s AV Area Cont Eq vti 2.8 cm squared AV Area Cont Eq pk 2.6 cm squared MV Area PHT 5.5 cm squared Mitral E to A Ratio 0.6 MV E' Velocity 30.0 cm/s Mitral E to MV E' Ratio 7.8 Mitral E to LV E' Lateral Ratio 9.4 Mitral E to LV E' Septal Ratio 6.7 TV Peak E Velocity 67.0 cm/s PV Peak Velocity 116.0 cm/s RV Acceleration Time 0.1 s RV Ejection Time 0.3 s RV AcT/ET 0.4 FINDINGS Left Ventricle Normal left ventricular size and systolic function, EF 60%. No regional wall motion abnormalities. Right Ventricle Normal right ventricular size and systolic function. Right Atrium The right atrium is normal in size. Left Atrium The left atrium is normal in size. Mitral Valve Thickened mitral valve. Aortic Valve Thickened aortic valve. Tricuspid Valve Could not be visualized well . Pulmonic Valve Could not be visualized well Pericardium Normal pericardium without effusion. Aorta Normal ascending aorta dimension. CONCLUSIONS Normal left ventricular size and systolic function, EF 60%. No regional wall motion abnormalities. Thickened mitral valve. Thickened aortic valve. There is no pericardial effusion. There are no intracardiac masses. Technically difficult study because of the poor ultrasonic window. Dr Teressa Torre MD FACC (Electronically Signed) Final Date: 23 November 2020 19:55 S
== END 2020-11-23 12:45 | disposition home or self-care (01) ==
LOC: RAD 12:47
PROVIDERS: PCP Nurse Practitioner Family; Visit Provider Internal Medicine Cardiovascular Disease
DX: R06.02 Shortness of breath (principal); I08.0 Rheumatic disorders of both mitral and aortic valves
CPT/HCPCS: 93306

== ENCOUNTER 2020-12-01 15:48 | Outpatient (CLI) | payer MEDICARE, MEDICAID, SELFPAY ==
--- NOTE | 2020-12-01 16:10 | XR_ITS ---
WS: [id number] AP and lateral chest, 12/01/2020 Clinical Data: resolution of pleural effusion Comparison: PA and lateral chest, 09/08/2020. Findings: The right pleural effusion and elevation of the right diaphragm remain the same. The left l valentine is clear. The heart is enlarged. The aortic arch is tortuous. No pneumothorax is seen. Degenerati ve change of the left shoulder is present. XR/XR chest 2V* [id number] Impression: 1. Right pleural effusion and consolidation remain the same. 2. Probable elevation of right diaphragm. 3. Atherosclerosis and cardiomegaly.
== END 2020-12-01 15:49 | disposition home or self-care (01) ==
PROVIDERS: PCP Nurse Practitioner Family; Visit Provider Internal Medicine Pulmonary Disease
DX: J90 Pleural effusion, not elsewhere classified (principal); I70.90 Unspecified atherosclerosis; I51.7 Cardiomegaly
CPT/HCPCS: 71046

== ENCOUNTER → 2020-12-07 09:31 | Outpatient (BNVA) | payer MEDICARE, MEDICAID, SELFPAY | PROVIDERS: PCP Nurse Practitioner Family; Visit Provider Internal Medicine Pulmonary Disease | DX: R06.02 Shortness of breath (principal) | CPT/HCPCS: 87635 ==

== ENCOUNTER 2020-12-12 10:59 | Outpatient (CLI) | payer MEDICARE, MEDICAID, SELFPAY ==
--- NOTE | 2020-12-12 11:29 | PFTS_ITS ---
Date of Study:12/12/20 Date of Dictation: MECHANICS: Forced vital capacity (FVC) is reduced. Forced expiratory volume in one second (FEV1) is reduced. FEV1/FVC is normal. FLOW VOLUME LOOP: Flow at all lung volumes with scooping. LUNG VOLUMES: Total lung capacity (TLC) is normal. Residual volume (RV) is normal. DIFFUSING CAPACITY FOR CARBON MONOXIDE: Mild reduced. INTERPRETATION: The pulmonary function tests are consistent with nonspecific ventilatory limitation. The spirometry is consistent with moderate restriction however at the lung volumes are normal. This is likely secondary to a combination of obstructive and restrictive ventilatory defect. The lung volumes are normal. Gas exchange (DLCO) is mildly reduced. MTDD
== END 2020-12-12 11:00 | disposition home or self-care (01) ==
PROVIDERS: PCP Nurse Practitioner Family; Visit Provider Internal Medicine Pulmonary Disease
DX: J44.9 Chronic obstructive pulmonary disease, unspecified (principal)
CPT/HCPCS: 94010; 94726; 94729

== ENCOUNTER 2021-01-17 16:48 | Emergency (ER) | payer MEDICARE, MEDICAID, SELFPAY ==
--- NOTE | 2021-01-17 | XR_ITS ---
WS: [id number] Left foot, 3 views, 01/17/2021 Clinical Data: FALL Comparison: None. Findings: No fractures or dislocations are seen. No bone destruction or erosion is noted. The tissues are roe l. There is severe osteoarthritic change of the ankle joint. There is a bunion at the head of the left f irst metatarsal. XR/XR foot LT min 3V* [id number] Impression: Negative for left foot fracture.
[2021-01-17 17:05] VITALS: PULSE 56; RESP 18; TEMP 36.4; BMI 35.4
--- NOTE | 2021-01-17 19:34 | CTR_ITS ---
PROCEDURE INFORMATION: Exam: CT Lumbar Spine Without Contrast Exam date and time: 01/17/2021 7:37 PM Age: 75 years old Clinical indication: Injury or trauma; Fall; Blunt trauma (contusions or hematomas) TECHNIQUE: Imaging protocol: Computed tomography images of the lumbar spine without contrast. Total images: 430 Radiation optimization: All CT scans at this facility use at least one of these dose optimization techniques: automated exposure control; mA and/or kV adjustment per patient size (includes targeted exams where dose is matched to clinical indication); or iterative reconstruction. COMPARISON: Lumbar Spine Flex/Extens [id number] 06/04/2018 12:38 PM RADIATION DOSE METRICS: Total DLP (mGy-cm): 2355.07 FINDINGS: Vertebrae: No visible acute osseous abnormality. No visible fracture, subluxation, or dislocation. No visible spondylolysis or spondylolisthesis. Advanced degenerative disease with spondylosis deformans and facet arthrosis. Discogenic sclerosis. Osteopenia. Innumerable Schmorl's nodes/subchondral cysts inferior endplate L3 and superior endplate L4. Mild scoliotic curvature. Discs/Spinal canal/Neural foramina: Advanced degenerative disc disease sparing only L5/S1. Vacuum disc phenomenon at multiple levels but most advanced L3/L4. Complete disc space height loss T12/L1 and L1/L2 with near complete loss L2/L3 and L4/L5. Severe spinal stenosis L2/L3 and L3/L4 with moderate severe spinal stenosis T12/L1 and L1/L2 primarily due to ligamentum flavum hypertrophy aggravated by posterior disc bulge osteophyte complexes. Less significant spinal stenosis L4/L5. Soft tissues: Unremarkable for age. No significant paraspinal muscle atrophy. Other findings: Obesity. Increased quantum mottle artifact which degrades image quality in detail. CT/CT lumbar spine wo con* [id number] IMPRESSION: 1. No visible acute osseous abnormality, fracture, subluxation, or dislocation. 2. Advanced degenerative disease and degenerative disc disease as detailed in text above. Radiation Dose CTDIVOL = (mGy): DLP = 2355.07 (mGy-cm)
--- NOTE | 2021-01-17 19:34 | CTR_ITS ---
PROCEDURE INFORMATION: Exam: CT Head Without Contrast Exam date and time: 01/17/2021 7:37 PM Age: 75 years old Clinical indication: Injury or trauma; Fall; Blunt trauma (contusions or hematomas); Additional info: Weakness TECHNIQUE: Imaging protocol: Computed tomography of the head without contrast. Radiation optimization: All CT scans at this facility use at least one of these dose optimization techniques: automated exposure control; mA and/or kV adjustment per patient size (includes targeted exams where dose is matched to clinical indication); or iterative reconstruction. COMPARISON: No relevant prior studies available. RADIATION DOSE METRICS: Total DLP (mGy-cm): 891.32 FINDINGS: Brain: There is moderate cortical atrophy. Low-density changes in the white matter are consistent with nonspecific small vessel chronic ischemic change. There is no intracranial mass, hemorrhage or edema. Fatty density adjacent to the anterior falx is consistent with small lipoma. Cerebral ventricles: No ventriculomegaly. Bones/joints: Unremarkable. No acute fracture. Paranasal sinuses: Visualized sinuses are unremarkable. No fluid levels. Mastoid air cells: Visualized mastoid air cells are well aerated. Soft tissues: Unremarkable. CT/CT head wo con* [id number] IMPRESSION: No acute intracranial finding. Radiation Dose CTDIVOL = (mGy): DLP = 891.32 (mGy-cm)
--- NOTE | 2021-01-17 19:35 | ECG_ITS ---
[facility] Test Date: 2021-01-17 Pat Name: Marcelo Loyola Department: Room: Gender: Male Spot Man: : 1945 Requested By: Leif Noel Order Number: [id number] Shannon MD: Teressa Torre M.D. Measurements Intervals [place] Rate: 65 P: 62 GA: 174 QRS: -6 QRSD: 94 T: 59 QT: 390 QTc: 407 Interpretive Statements SINUS RHYTHM WITH OCCASIONAL VENTRICULAR PREMATURE COMPLEXES NONSPECIFIC T-WAVE ABNORMALITY Compared to ECG 08/26/2020 23:12:39 Ventricular premature complex(es) no longer present T-wave abnormality still present Electronically Signed On 01-18-2021 20:51:50 DYE EXPERT by Teressa Torre M.D. [email or web address] [email or web address] regional medical [email or web address] Financialchildren[facility] hospital for [facility].[email or web address]/store/OM/[id number]
--- NOTE | 2021-01-17 19:46 | CTR_ITS ---
PROCEDURE INFORMATION: Exam: CT Cervical Spine Without Contrast Exam date and time: 01/17/2021 7:46 PM Age: 75 years old Clinical indication: Injury or trauma; Fall; Blunt trauma; Additional info: Frequent falls TECHNIQUE: Imaging protocol: Computed tomography images of the cervical spine without contrast. Radiation optimization: All CT scans at this facility use at least one of these dose optimization techniques: automated exposure control; mA and/or kV adjustment per patient size (includes targeted exams where dose is matched to clinical indication); or iterative reconstruction. COMPARISON: CT cervical spin wo con* [id number] 01/25/2020 3:58 PM RADIATION DOSE METRICS: Total DLP (mGy-cm): 827.57 FINDINGS: Vertebrae: No fracture is identified. There is some mild degenerative change in the anterior atlanto axial space. C2-C3: There is degenerative change in the right facet joints increased from the previous study. C3-C4: There is approximately 3.2 mm of anterolisthesis not changed from previous. There has been development of some cystic degenerative change in the posterior corners of the adjacent vertebral bodies and increasing degenerative changes in the facet joints on both sides with cystic degenerative changes in the subarticular regions bilaterally. C4-C5: There is approximately 3 mm of anterolisthesis not significantly changed. There are mild degenerative changes in the facet joints on both sides, more on the left than on the right which have not significantly changed. C5-C6: there is decreased height of the disc with some posterior spurring which encroaches upon the left neural foramen not changed from previous. C6-C7: Severe narrowing of the disc space with Schmorl's node deformities and degenerative changes of the adjacent endplates not changed from previous. C7-T1: No significant disc protrusion. No severe spinal canal stenosis. No significant neural foraminal narrowing. Soft tissues: Unremarkable. Lungs: Lung apices are normal. CT/CT cervical spin wo con* [id number] IMPRESSION: 1. Extensive degenerative changes in the cervical spine which have progressed compared with 01/25/2020 2. No fracture is identified. Radiation Dose CTDIVOL = (mGy): DLP = 827.57 (mGy-cm)
[2021-01-17 20:48] LABS: Basophils % 0.5 %; Eosinophils % 0.5 %; Hematocrit 40.1 % (42.0-52.0); Hemoglobin 13.1 g/dL (11.7-16.6); Lymphocytes # 1.8 10^3/uL (0.8-4.8); Mean Corpuscular HGB Conc 32.7 g/dL (30.0-36.0); Mean Corpuscular Volume 94.8 fL (80-94); Mean Platelet Volume 10.9 fL (7.4-10.4); Monocytes # 0.7 10^3/uL (0.2-0.9); Monocytes % 7.8 %; Neutrophils # 5.77 10^3/uL (1.8-7.7); Neutrophils % 68.8 %; Nucleated Red Blood Cells % 0 %; Platelet Count 201 10^3/cmm (130-400); Red Blood Count 4.23 10^6/uL (4.1-5.3); Red Cell Distribution Width 13.2 % (12.1-15.1); White Blood Count 8.4 10^3/uL (4.0-10.0)
--- NOTE | 2021-01-17 21:06 | W.ED.EXTPRO ---
HPI - Extremity Problem General: Chief complaint: Extremity Problem,Nontraumatic Stated complaint: Numbness in Legs/Falls Time Seen by Provider: 01/17/21 19:27 Source: patient Mode of arrival: ambulatory Limitations: no limitations History of Present Illness: HPI Narrative: 75-year-old male has a history of chronic back pain states he fell today and injured his left foot. He states he also hit his head and has neck pain and back pain. He states he has had some falls lately and does have chronic back pain. Denies any generalized weakness. Denies any worsening improving factors. Associated symptoms: Deny chest pain, fever(s) or rash Review of Systems Const: Denies: fever(s), chills, body aches or change in appetite Eyes: Denies: blurry vision or eye discomfort ENMT: Denies: throat pain or dental pain Card: Denies: chest pain Resp: Denies: dyspnea GI: Denies: abdominal pain, nausea, vomiting or diarrhea : Denies: dysuria Musc: Reports: back pain; Denies: neck pain Skin/Breast: Denies: rash Neuro: Denies: headache(s) Psych: Denies: depression Stalin/Lymph: Denies: easy bruising All/Imm: Denies: urticaria PFSH ED PFSH: Medical History (Updated 01/17/21 @ 22:17 by Leif Noel MD) Allergic rhinitis Benign essential HTN Chronic sinusitis CKD (chronic kidney disease) COPD (chronic obstructive pulmonary disease) Coronary arteriosclerosis in [place] artery Depression Edema Essential (primary) hypertension Gout Hyperlipemia Idiopathic peripheral neuropathy Nicotine dependence MONTEZ (obstructive sleep apnea) Osteoarthritis Palpitations SOB (shortness of breath) Surgical History H/O foot surgery H/O knee surgery History of surgery of head Family History Son Anxiety Psychiatric illness Depression Liver disease Thyroid disease Mother Lung disease Diabetes Hypertension Father Diabetes Brother Diabetes Hypertension Sister Hypertension Other Cancer Social History Smoking and tobacco status: current every day smoker smokeless tobacco Smokeless tobacco user: chewing tobacco Smokeless tobacco details: 0.5 Can Daily x 30 Years - Hx of 5 ciggs daily x 15 years - Quit in 1979 Second hand smoke exposure: Yes Smoking risk assessment/counseling performed?: Yes Alcohol intake: never Lives independently: Yes Household members: spouse Marital status: service: No Current occupational status: disabled Pets and animals: Yes History of recent travel: No Current gender identity: Male Physical Exam Const: COMMON NORMALS: no acute distress, patient oriented x3 and healthy appearing HENMT: COMMON NORMALS: normocephalic and atraumatic HEAD & SCALP: normocephalic and atraumatic Eye: COMMON NORMALS: Equal, round and reactive pupils present and EOMs intact bilaterally PUPIL: Yes Equal, round and reactive pupils present Neck/C-Spine: COMMON NORMALS: full ROM and supple Chest: COMMONS NORMALS: normal inspection of the chest and normal palpation of entire chest wall Resp: COMMON NORMALS: normal respiratory effort, No retractions, No use of accessory muscles and clear to auscultation bilaterally AUSCULTATION: clear to auscultation bilaterally Cardio: COMMON NORMALS: regular rate, regular rhythm and No murmurs present (Cardio) RATE: regular rate RHYTHM: regular rhythm GI: COMMON NORMALS: Normal to inspection, nondistended, normoactive bowel sounds present, Soft to palpation, non-tender and no masses PALPATION: Yes Soft to palpation Extremity: COMMON NORMALS: normal to inspection and full ROM Neuro: COMMON NORMALS: patient oriented x3, moves all extremities and no focal motor deficits Psych: COMMON NORMALS: mental status grossly normal, Normal thought process present and cooperative THOUGHT PROCESS: Normal thought process present Skin: COMMON NORMALS: no rashes or lesions noted and no wounds GENERAL SKIN EXAM: no rashes or lesions noted Course Vital Signs: Vital signs: Vital Signs Temperature 97.5 F L 01/17/21 17:05 Pulse Rate 56 L 01/17/21 17:05 Respiratory Rate 18 01/17/21 17:05 MDM - Extremity (Nontraumatic) MDM Narrative: Medical decision making narrative: Marcelo presents here with a fall with foot pain. X-ray shows no acute foot fracture. He is well-appearing here has had some frequent falls but has no signs of stroke. Head CT here is normal. Patient is stable for discharge and return if worsening. Lab Data: Labs: Lab Results 03/02/21 03/02/21 03/02/21 Range/Units 20:40 20:40 21:40 WBC 8.4 (4.0-10.0) 10^3/ uL RBC 4.23 (4.1-5.3) 10^6/u L Hgb 13.1 (11.7-16.6) g/dL Hct 40.1 L (42.0-52.0) % MCV 94.8 H (80-94) fL MCH 31.0 (28.0-34.0) pg MCHC 32.7 (30.0-36.0) g/dL RDW 13.2 (12.1-15.1) % Plt Count 201 (130-400) 10^3/c mm MPV 10.9 H (7.4-10.4) fL Neut % (Auto) 68.8 % Lymph % (Auto) 22.0 % [place] % (Auto) 7.8 % Eos % (Auto) 0.5 % Baso % (Auto) 0.5 % Neut # (Auto) 5.77 (1.8-7.7) 10^3/u L Lymph # (Auto) 1.8 (0.8-4.8) 10^3/u L [place] # (Auto) 0.7 (0.2-0.9) 10^3/u L Eos # (Auto) 0.0 (0.0-0.8) 10^3/u L Baso # (Auto) 0.0 (0.0-0.1) 10^3/u L Nucleated RBC % (a uto) 0 % Nucleated RBCs # 0.0 /100WBC Sodium 139 (136-145) mmol/L Potassium 4.1 (3.5-5.1) mmol/L Chloride 98 (98-107) mmol/L Carbon Dioxide 30 H (22-29) mmol/L Anion Gap 15.1 (5-19) BUN 16 (8-23) mg/dL Creatinine 1.3 H (0.7-1.2) mg/dL GFR Calculation Not Reportable Glucose 92 (65-115) mg/dL Calculated Osmolal ity 289 (285-295) mOsm/k g Calcium 9.0 (8.5-10.5) mg/dL Total Bilirubin 0.3 (0.15-1.2) mg/dL AST 22 (0-40) U/L ALT 17 (0-41) U/L Alkaline Phosphata se 166 H (40-130) IU/L Total Protein 6.7 (6.6-8.7) g/dL Albumin 3.9 (3.5-5.2) g/dL Globulin 2.8 (1.3-4.6) g/dL TSH 2.39 (0.27-4.20) uIU/ mL Urine Color Yellow (Yellow) Urine Appearance Clear (CLEAR) Urine pH 6 (5-7) Ur Specific Gravit y 1.010 (1.005-1.030) Urine Protein Neg (Negative) Urine Glucose (UA) Norm (Normal) Urine Ketones Negative (Negative) Urine Blood Neg (Negative) Urine Nitrate Negative (Negative) Urine Bilirubin Neg (Negative) Urine Urobilinogen 1 H (Negative) mg/dL Ur Leukocyte Olga Lidia ase Negative (Negative) Imaging Data^: xr l foot: Attestation: I personally reviewed and interpreted this imaging study as follows: My impression: severe arthritis CT Head: Radiologist's impression: [address] [address] [address] Scan Report Signed Patient: Marcelo Loyola Unit #: [id number] : 1945 Age/Sex: 75 / M ADM Date: 01/17/21 Loc: ER Room/Bed: Attending Dr: Ordering Provider/Ordering MD: Leif Noel MD Date of Service: 01/17/21 Procedure(s): CT head wo con* [id number] Accession Number(s): [id number] Report Number: [id number] PROCEDURE INFORMATION: Exam: CT Head Without Contrast Exam date and time: 01/17/2021 7:37 PM Age: 75 years old Clinical indication: Injury or trauma; Fall; Blunt trauma (contusions or hematomas); Additional info: Weakness TECHNIQUE: Imaging protocol: Computed tomography of the head without contrast. Radiation optimization: All CT scans at this facility use at least one of these dose optimization techniques: automated exposure control; mA and/or kV adjustment per patient size (includes targeted exams where dose is matched to clinical indication); or iterative reconstruction. COMPARISON: No relevant prior studies available. RADIATION DOSE METRICS: Total DLP (mGy-cm): 891.32 FINDINGS: Brain: There is moderate cortical atrophy. Low-density changes in the white matter are consistent with nonspecific small vessel chronic ischemic change. There is no intracranial mass, hemorrhage or edema. Fatty density adjacent to the anterior falx is consistent with small lipoma. Cerebral ventricles: No ventriculomegaly. Bones/joints: Unremarkable. No acute fracture. Paranasal sinuses: Visualized sinuses are unremarkable. No fluid levels. Mastoid air cells: Visualized mastoid air cells are well aerated. Soft tissues: Unremarkable. CT/CT head wo con* [id number] IMPRESSION: No acute intracranial finding. ct c spine: Radiologist's impression: [address] [address] [address] Scan Report Signed Patient: Marcelo Loyola Unit #: [id number] : 1945 Age/Sex: 75 / M ADM Date: 01/17/21 Loc: ER Room/Bed: Attending Dr: Ordering Provider/Ordering MD: Leif Noel MD Date of Service: 01/17/21 Procedure(s): CT cervical spin wo con* [id number] Accession Number(s): [id number] Report Number: [id number] PROCEDURE INFORMATION: Exam: CT Cervical Spine Without Contrast Exam date and time: 01/17/2021 7:46 PM Age: 75 years old Clinical indication: Injury or trauma; Fall; Blunt trauma; Additional info: Frequent falls TECHNIQUE: Imaging protocol: Computed tomography images of the cervical spine without contrast. Radiation optimization: All CT scans at this facility use at least one of these dose optimization techniques: automated exposure control; mA and/or kV adjustment per patient size (includes targeted exams where dose is matched to clinical indication); or iterative reconstruction. COMPARISON: CT cervical spin wo con* [id number] 01/25/2020 3:58 PM RADIATION DOSE METRICS: Total DLP (mGy-cm): 827.57 FINDINGS: Vertebrae: No fracture is identified. There is some mild degenerative change in the anterior atlanto axial space. C2-C3: There is degenerative change in the right facet joints increased from the previous study. C3-C4: There is approximately 3.2 mm of anterolisthesis not changed from previous. There has been development of some cystic degenerative change in the posterior corners of the adjacent vertebral bodies and increasing degenerative changes in the facet joints on both sides with cystic degenerative changes in the subarticular regions bilaterally. C4-C5: There is approximately 3 mm of anterolisthesis not significantly changed. There are mild degenerative changes in the facet joints on both sides, more on the left than on the right which have not significantly changed. C5-C6: there is decreased height of the disc with some posterior spurring which encroaches upon the left neural foramen not changed from previous. C6-C7: Severe narrowing of the disc space with Schmorl's node deformities and degenerative changes of the adjacent endplates not changed from previous. C7-T1: No significant disc protrusion. No severe spinal canal stenosis. No significant neural foraminal narrowing. Soft tissues: Unremarkable. Lungs: Lung apices are normal. ct l spine: Radiologist's impression: [place] [place] [facility] [address] [address] Scan Report Signed Patient: Marcelo Loyola Unit #: [id number] : 1945 Age/Sex: 75 / M ADM Date: 01/17/21 Loc: ER Room/Bed: Attending Dr: Ordering Provider/Ordering MD: Leif Noel MD Date of Service: 01/17/21 Procedure(s): CT lumbar spine wo con* [id number] Accession Number(s): [id number] Report Number: [id number] PROCEDURE INFORMATION: Exam: CT Lumbar Spine Without Contrast Exam date and time: 01/17/2021 7:37 PM Age: 75 years old Clinical indication: Injury or trauma; Fall; Blunt trauma (contusions or hematomas) TECHNIQUE: Imaging protocol: Computed tomography images of the lumbar spine without contrast. Total images: 430 Radiation optimization: All CT scans at this facility use at least one of these dose optimization techniques: automated exposure control; mA and/or kV adjustment per patient size (includes targeted exams where dose is matched to clinical indication); or iterative reconstruction. COMPARISON: CR Lumbar Spine Flex/Extens [id number] 06/04/2018 12:38 PM RADIATION DOSE METRICS: Total DLP (mGy-cm): 2355.07 FINDINGS: Vertebrae: No visible acute osseous abnormality. No visible fracture, subluxation, or dislocation. No visible spondylolysis or spondylolisthesis. Advanced degenerative disease with spondylosis deformans and facet arthrosis. Discogenic sclerosis. Osteopenia. Innumerable Schmorl's nodes/subchondral cysts inferior endplate L3 and superior endplate L4. Mild scoliotic curvature. Discs/Spinal canal/Neural foramina: Advanced degenerative disc disease sparing only L5/S1. Vacuum disc phenomenon at multiple levels but most advanced L3/L4. Complete disc space height loss T12/L1 and L1/L2 with near complete loss L2/L3 and L4/L5. Severe spinal stenosis L2/L3 and L3/L4 with moderate severe spinal stenosis T12/L1 and L1/L2 primarily due to ligamentum flavum hypertrophy aggravated by posterior disc bulge osteophyte complexes. Less significant spinal stenosis L4/L5. Soft tissues: Unremarkable for age. No significant paraspinal muscle atrophy. Other findings: Obesity. Increased quantum mottle artifact which degrades image quality in detail. CT/CT lumbar spine wo con* [id number] IMPRESSION: 1. No visible acute osseous abnormality, fracture, subluxation, or dislocation. 2. Advanced degenerative disease and degenerative disc disease as detailed in text above. Radiation Dose CTDIVOL = (mGy): DLP = 2355.07 EKG Data^: EKG 1: Attestation: I personally reviewed and interpreted this EKG as follows: EKG interpretation date: 01/17/21 EKG interpretation time: 20:02 Interpretation: nsr hr [address] or t wave abnormalities Discharge Plan Discharge Patient Disposition: Home Clinical Impression: Falls Contusion of foot, left Qualifiers: Encounter type: initial encounter Qualified Code(s): S90.32XA - Contusion of left foot, initial encounter Condition: Stable Prescriptions: No Action ketotifen fumarate [Alaway] 0.025 % (0.035 %) drops 1 drop ophthalmic (eye) BID RF: 0 allopurinol 300 mg tablet 150 mg PO DAILY RF: 0 aspirin [Adult Aspirin Regimen] 81 mg tablet,delayed release (DR/EC) 81 mg PO DAILY RF: 0 bumetanide 2 mg tablet 2 mg PO DAILY RF: 0 diclofenac sodium 75 mg tablet,delayed release (DR/EC) 75 mg PO BID RF: 0 doxazosin 4 mg tablet 4 mg PO DAILY RF: 0 gabapentin 600 mg tablet 600 mg PO TID RF: 0 metoprolol tartrate 50 mg tablet 50 mg PO BID RF: 0 polyethylene glycol 3350 [Miralax] 17 gram/dose powder 17 gm PO DAILY RF: 0 misoprostol 200 mcg tablet 400 mcg PO BID RF: 0 montelukast [Singulair] 10 mg tablet 10 mg PO DAILY RF: 0 paroxetine HCl 20 mg tablet 20 mg PO DAILY RF: 0 potassium chloride 10 mEq capsule, extended release 10 meq PO DAILY RF: 0 albuterol sulfate [ProAir HFA] 90 mcg/actuation HFA aerosol inhaler 2 puff INHALATION Q4H PRN (Reason: Shortness Of Breath) RF: 0 rosuvastatin 20 mg tablet 20 mg PO DAILY RF: 0 tramadol 50 mg tablet 50 mg PO Q8H PRN (Reason: Pain) RF: 0 Breo Ellipta 200-25 mcg/dose blister with device 1 inh inhalation DAILY RF: 0 ipratropium-albuterol 0.5 mg-3 mg(2.5 mg base)/3 mL solution for nebulization 3 ml inhalation Q6H PRNRF: 0 Perforomist 20 mcg/2 mL solution for nebulization 2 ml inhalation BID Qty: 60 RF: 3 budesonide [Pulmicort] 0.5 mg/2 mL suspension for nebulization 0.5 mg inhalation DAILY Qty: 30 RF: 3 methocarbamol 750 mg tablet 750 mg PO TID PRNRF: 0 prednisone 20 mg tablet 20 mg PO DAILY Qty: 7 RF: 0 doxycycline hyclate 100 mg tablet 100 mg PO BID Qty: 14 RF: 0 Vitamin B-12 1,000 mcg Tablet See Rx Instructions .ROUTE .COMPLEX RF: 0 Discharge Orders: Discharge ED (Routine); Ordered 01/17/21 Ordered By: Leif Noel Referrals: Juany Velazquez [employer] [Primary Care Provider] - 1-3 days Discharge Diet: Advance as tolerated Discharge Activity: Resume usual activity Patient Instructions: Fall Prevention (ED) Coding Level of Care Code ED Crossband Layer for Alvaro Fwd Exam Comprehensive
[2021-01-17 21:14] LABS: Alanine Aminotransferase 17 U/L (0-41); Albumin Level 3.9 g/dL (3.5-5.2); Alkaline Phosphatase 166 IU/L (40-130); Anion Gap 15.1 (5-19); Aspartate Amino Transferase 22 U/L (0-40); Blood Urea Nitrogen 16 mg/dL (8-23); Carbon Dioxide 30 mmol/L (22-29); Chloride 98 mmol/L (98-107); Globulin 2.8 g/dL (1.3-4.6); Glucose 92 mg/dL (65-115); Osmolality Calculated 289 mOsm/kg (285-295); Potassium 4.1 mmol/L (3.5-5.1); Sodium 139 mmol/L (136-145); Thyroid Stimulating Hormone 2.39 uIU/mL (0.27-4.20); Total Bilirubin 0.3 mg/dL (0.15-1.2); Total Protein 6.7 g/dL (6.6-8.7)
[2021-01-17 21:15] LABS: Creatinine Clr Calc Pharmacy 71.1491
--- NOTE | 2021-01-17 21:38 | XR_ITS ---
WS: [id number] Portable AP upright chest, 01/17/2021 Clinical Data: cough Comparison: Portable chest, 12/01/2020. Findings: The right diaphragm remains elevated. The left lung is clear. The heart is slightly enlarge d. The aortic arch shows tortuosity. No pneumothorax is seen. The pulmonary vascularity is not increa sed. There is severe osteoarthritis of both shoulders. There is a dextroscoliosis of the thoracic spi ne. XR/XR chest 1V portable [id number] Impression: 1. Elevation of the right diaphragm unchanged. 2. Cardiomegaly and atherosclerosis.
[2021-01-17 21:49] LABS: Add Urine Microscopic? NO
[2021-01-17 21:53] LABS: Bilirubin Urine Neg (Negative); Blood Urine Neg (Negative); Glucose Urine UA Norm (Normal); Ketones Urine Negative (Negative); Leukocyte Esterase Urine Negative (Negative); Nitrate Urine Negative (Negative); Protein Urine Neg (Negative); Urine Appearance Clear (CLEAR); Urine Color Yellow (Yellow); Urobilinogen Urine 1 mg/dL (Negative); pH Urine 6 (5-7)
[2021-01-17 22:46] VITALS: BP 115/70; PULSE 71; RESP 18; O2SAT 90
== END 2021-01-17 22:46 | disposition home or self-care (01) ==
PROVIDERS: Emergency Provider Emergency Medicine; PCP Nurse Practitioner Family
DX: S90.32XA Contusion of left foot, initial encounter (principal); R29.6 Repeated falls; Z79.82 Long term (current) use of aspirin; I10 Essential (primary) hypertension; J44.9 Chronic obstructive pulmonary disease, unspecified; I25.10 Atherosclerotic heart disease of native coronary artery without angina pectoris; E78.5 Hyperlipidemia, unspecified; F17.220 Nicotine dependence, chewing tobacco, uncomplicated; W19.XXXA Unspecified fall, initial encounter
CPT/HCPCS: 70450; 71045; 72125; 72131; 73630; 80053; 81003; 84443; 85025; 93005; 99283

== ENCOUNTER 2021-03-03 14:54 | Outpatient (CLI) | payer MEDICARE, MEDICAID, SELFPAY ==
--- NOTE | 2021-03-03 15:15 | MR_ITS ---
WS: [id number] MRI LUMBAR SPINE NONCONTRAST HISTORY: M46.46 - Discitis, unspecified, lumbar region COMPARISON: CT lumbar spine 01/17/2021 TECHNIQUE: Sagittal and axial multisequence imaging is submitted. Increase in cervical flexion. 5 mm anterolisthesis of C3. Mild cord contact and cervical stenosis at the C3-4 level. Moderate degenerative disc space desiccation throughout the cervical and thoracic spi jade. Straightening of the normal lumbar lordosis. Severe disc space narrowing and desiccation throughout t he lumbar spine and lower thoracic spine. Marked abnormality at the L4-5 disc space. There is marrow edema which is only mild throughout the L4 and L5 vertebral bodies and a small amount of edema within the disc. This corresponds to sclerotic a nd lytic changes noted on a prior CT. Please note that there are 5 lumbar type vertebral bodies. The fifth lumbar type vertebral body will be labeled S1. Conus terminates normally at L1-2 disc level. L1-L2: Osteophytic ridging around the vertebral bodies. There is cord contact by the osteophyte disea se. There is a 5 mm osteophyte extending posteriorly along with facet joint arthritis causing a moder ate stenosis centrally and bilaterally. L2-L3: Diffuse annular disc bulging and osteophytic ridging. Moderate ligamentum flavum hypertrophy. Moderate to severe RIGHT foraminal stenosis and mild on the LEFT. L3-L4: Diffuse osteophytic ridging and annular disc bulging with ligamentum flavum hypertrophy. Asymm etric hypertrophy is greatest on the LEFT. Moderate central, bilateral subarticular recess and forami nal stenosis. L4-L5: Diffuse annular disc bulging focal central disc protrusion and marked ligamentum flavum hypert rophy. There is severe central stenosis with bilateral foraminal stenosis and subarticular recess shadia nosis. Below the disc level nerve roots are becoming slightly clumped in the periphery of the thecal sac. L5-S1: Annular disc bulging with facet joint arthritis. Severe RIGHT and moderate LEFT foraminal sten osis. Predominantly due to osteophyte disease. Rudimentary S1-S2 disc is small caliber but no stenosis or protrusions. Large RIGHT renal cyst. MR/MR lumbar spine wo con* [id number] IMPRESSION: 1. Destructive changes within the disc and the endplates of L4-5. There is als o edema within the disc. Although no contrast is given these changes are very s uspicious for a discitis. This may be partially treated discitis and osteomyeli tis. Destructive bone changes were also seen on the recent CT of 01/17/2021. 2. Severe central, bilateral subarticular and foraminal stenosis at the L4-5 l evel. 3. Moderate central, bilateral subarticular and foraminal stenosis at L3-4. 4. Moderate to severe RIGHT foraminal stenosis at L2-3. 5. Osteophyte contacting the ventral cord at L1-2. 6. Severe RIGHT and moderate LEFT foraminal stenosis at L5-S1. 7. Please note that there are 6 lumbar type vertebral bodies. The 6 lumbar typ e vertebral body will be labeled S1 as this is probably a lumbarized S1 segment . S1.
== END 2021-03-03 14:55 | disposition home or self-care (01) ==
LOC: RADSHAW 14:56
PROVIDERS: PCP Nurse Practitioner Family; Visit Provider Orthopaedic Surgery
DX: M46.46 Discitis, unspecified, lumbar region (principal); M48.07 Spinal stenosis, lumbosacral region; M48.061 Spinal stenosis, lumbar region without neurogenic claudication
CPT/HCPCS: 72148

== ENCOUNTER 2021-03-14 14:52 | Outpatient (CLI) | payer MEDICARE, MEDICAID, SELFPAY ==
[2021-03-14 16:09] LABS: Hematocrit 40.9 % (42.0-52.0); Hemoglobin 13.1 g/dL (11.7-16.6); Mean Corpuscular Volume 96.7 fL (80-94); Platelet Count 227 10^3/cmm (130-400); Red Blood Count 4.23 10^6/uL (4.1-5.3); Red Cell Distribution Width 13.2 % (12.1-15.1); White Blood Count 7.3 10^3/uL (4.0-10.0)
[2021-03-14 16:42] LABS: C Reactive Protein 9.3 mg/L (0.0-4.9)
[2021-03-14 19:43] LABS: Absolute Eosinophils 0.2 10^3/cmm (0.0-0.7); Absolute Segmented Neutrophil 3.9 10/cmm (1.6-7.1); Band Neutrophils Absolute 0.3 10^3/cmm (0.0-1.2); Eosinophils 3 %; Lymphocytes 36 %; Lymphocytes Absolute 2.6 10^3/cmm (1.2-3.4); Monocytes Absolute 0.4 10^3/cmm (0.1-0.6); Segmented Neutrophils 54 %; Total Cells Counted 100 (0-100)
[2021-03-14 19:50] LABS: Absolute Neutrophil 4.2 10^3/cmm (1.4-6.5); Platelet Estimate Normal (Normal)
== END 2021-03-14 14:53 | disposition home or self-care (01) ==
PROVIDERS: PCP Nurse Practitioner Family; Visit Provider Orthopaedic Surgery
DX: M46.46 Discitis, unspecified, lumbar region (principal)
CPT/HCPCS: 36415; 85007; 85027; 86140; 87040; 87205

== ENCOUNTER 2021-03-16 09:49 | Inpatient (IN) | payer MEDICARE, MEDICAID, SELFPAY ==
[2021-03-16] VITALS (11 sets, daily range): BP systolic 88–136; BP diastolic 60–78; PULSE 71–94; RESP 16–18; TEMP 36.6–36.8; O2SAT 87–96; BMI 35.4
[2021-03-16 11:21] LABS: Basophils % 0.7 %; Eosinophils # 0.1 10^3/uL (0.0-0.8); Eosinophils % 2.2 %; Hematocrit 40.1 % (42.0-52.0); Hemoglobin 12.7 g/dL (11.7-16.6); Lymphocytes # 1.6 10^3/uL (0.8-4.8); Lymphocytes % 27.5 %; Mean Corpuscular HGB Conc 31.7 g/dL (30.0-36.0); Mean Corpuscular Hemoglobin 30.6 pg (28.0-34.0); Mean Corpuscular Volume 96.6 fL (80-94); Mean Platelet Volume 10.6 fL (7.4-10.4); Monocytes # 0.5 10^3/uL (0.2-0.9); Monocytes % 8.1 %; Neutrophils # 3.61 10^3/uL (1.8-7.7); Neutrophils % 61.2 %; Nucleated Red Blood Cells % 0 %; Platelet Count 205 10^3/cmm (130-400); Red Blood Count 4.15 10^6/uL (4.1-5.3); Red Cell Distribution Width 13.2 % (12.1-15.1); White Blood Count 5.9 10^3/uL (4.0-10.0)
--- NOTE | 2021-03-16 11:40 | W.ED.BACK ---
HPI - Back Pain/Injury General: Chief Complaint: Back Pain/Injury Stated Complaint: SPINAL INFECTION Time Seen by Provider: 03/16/21 10:42 History of Present Illness: HPI Narrative: So 75-year-old male whose had lower back pain for almost 40 years. He was seen by orthopedics a couple of weeks ago because he had a lumbar CT scan that showed possible discitis. So he saw Dr. Olivares in the office mid February and he ordered a lumbar MRI which got resulted a couple of days ago with some inflammation around L4-L5 with possible discitis. Dr. Olivares then ordered some blood cultures and laboratory testing and Dr. Cummins got a call last night that there was potential gram-positive cocci in the blood cultures so therefore he sent him to the emergency room today for antibiotics Patient denies any changes or increase in pain it has been his chronic similar pain he is had for years he denies any fevers no chills no nausea vomiting diarrhea. Review of Systems General: Reports: 10 or more systems reviewed and unremarkable except in HPI and below Narrative: General: denies fatigue, fever or chills HEENT: denies ear pain, denies nasal congestion, denies vision changes, denies sore throat Neck: denies masses or pain Resp: denies cough, denies shortness of breath, denies pleuritic pain Cardio: denies chest pain, denies edema GI: denies abdominal pain, denies N/V/D, denies black/tarry or bloody stools : denies hematuria, denies dysuria Neuro: denies headache, denies dizziness, denies motor or sensory changes Musculoskeletal: denies any increase in his low back pain or changes denies any new radiculopathy denies bowel or bladder incontinence denies any paralysis or weakness of his extremities or loss of functions Skin: denies rashes Psych: denies SI or HI Endocrine: denies thyroid symptoms, denies lymphadenopathy all over ROS reviewed and patient denies PFSH ED PFSH: Medical History (Updated 03/16/21 @ 11:42 by Essie Almanzar DO) Allergic rhinitis Benign essential HTN Chronic sinusitis CKD (chronic kidney disease) COPD (chronic obstructive pulmonary disease) Coronary arteriosclerosis in [place] artery Depression Edema Essential (primary) hypertension Gout Hyperlipemia Idiopathic peripheral neuropathy Nicotine dependence MOTNEZ (obstructive sleep apnea) Osteoarthritis Palpitations SOB (shortness of breath) Surgical History H/O foot surgery H/O knee surgery History of surgery of head Family History Son Anxiety Psychiatric illness Depression Liver disease Thyroid disease Mother Lung disease Diabetes Hypertension Father Diabetes Brother Diabetes Hypertension Sister Hypertension Other Cancer Social History Smoking and tobacco status: current every day smoker smokeless tobacco Smokeless tobacco user: chewing tobacco Smokeless tobacco details: 0.5 Can Daily x 30 Years - Hx of 5 ciggs daily x 15 years - Quit in 1979 Second hand smoke exposure: Yes Smoking risk assessment/counseling performed?: Yes Alcohol intake: never Lives independently: Yes Household members: spouse Housing: House Marital status: service: No Current occupational status: disabled Pets and animals: Yes History of recent travel: No Current gender identity: Male Physical Exam Narrative: EXAM NARRATIVE: General: a/o/3, no distress Head: atraumatic HEENT: normal eyes, normal conjunctiva, normal hearing, normal external nose, normal mouth, mucous membranes moist Neck: FROM, trachea midline Chest: normal expansion, no gross deformities Resp: normal speech, no retractions, no accessory muscle use, CTA bilaterally Cardio: regular rate and rhythm and no murmur, no peripheral edema, normal peripheral pulses GI: soft, flat non tender, no guarding normal BS : deferred Musculoskeletal: FROM, no pain or gross deformities Neuro: a/o appropriate for age, no gross motor or sensory deficitys, CN II-XII grossly intact, normal coordination, normal speech Skin: no rashes Psych: cooperative, normal mood and effect Course Vital Signs: Vital signs: Vital Signs Temperature 98.2 F 03/16/21 10:20 Pulse Rate 77 03/16/21 10:28 Respiratory Rate 18 03/16/21 10:20 Blood Pressure 106/73 03/16/21 10:28 Pulse Oximetry 89 L 03/16/21 10:28 MDM - Back Pain/Injury MDM Narrative: Medical decision making narrative: Reviewed the patient's MRI and it does mention possible osteomyelitis as was found potentially on his CAT scan in January as well as possible discitis at L4-L5 and his recent laboratory work however our computer did not document culture results therefore I spoke to microbiology and she said it was charted incorrectly however they will correct that but that he did have 1 bottle that had some gram-positive cocci in clusters however they have not been able to determine yet as it is too soon of what type of bacteria this is and there is the possibility that it could be contaminant. They still have 3 other bottles to look at that are not due to be resulted until tomorrow I consulted infectious disease Dr Garcia and we feel with patient being diabetic the potential of significant consequences of spinal infections that we will go ahead and start a dose of vancomycin and place him in observation until we can obtain further confirmation of these blood culture results we will also get a sed rate his CRP yesterday was 9.3 patient is very nontoxic appearing Medical Records: Attestation: I reviewed the patient's medical records. Lab Data: Labs: Lab Results 03/16/21 03/16/21 03/16/21 Range/Units 11:17 11:17 11:17 WBC 5.9 (4.0-10.0) 10^3/ uL RBC 4.15 (4.1-5.3) 10^6/u L Hgb 12.7 (11.7-16.6) g/dL Hct 40.1 L (42.0-52.0) % MCV 96.6 H (80-94) fL MCH 30.6 (28.0-34.0) pg MCHC 31.7 (30.0-36.0) g/dL RDW 13.2 (12.1-15.1) % Plt Count 205 (130-400) 10^3/c mm MPV 10.6 H (7.4-10.4) fL Neut % (Auto) 61.2 % Lymph % (Auto) 27.5 % [place] % (Auto) 8.1 % Eos % (Auto) 2.2 % Baso % (Auto) 0.7 % Neut # (Auto) 3.61 (1.8-7.7) 10^3/u L Lymph # (Auto) 1.6 (0.8-4.8) 10^3/u L [place] # (Auto) 0.5 (0.2-0.9) 10^3/u L Eos # (Auto) 0.1 (0.0-0.8) 10^3/u L Baso # (Auto) 0.0 (0.0-0.1) 10^3/u L Nucleated RBC % (a uto) 0 % Nucleated RBCs # 0.0 /100WBC ESR (0-10) mm/hr Sodium 139 (136-145) mmol/L Potassium 3.6 (3.5-5.1) mmol/L Chloride 98 (98-107) mmol/L Carbon Dioxide 33 H (22-29) mmol/L Anion Gap 11.6 (5-19) BUN 16 (8-23) mg/dL Creatinine 1.2 (0.7-1.2) mg/dL GFR Calculation Not Reportable Glucose 108 (65-115) mg/dL Calculated Osmolal ity 290 (285-295) mOsm/k g Lactate 1.8 (0.5-2.2) mmol/L Calcium 8.5 (8.5-10.5) mg/dL 03/16/21 Range/Units 11:17 WBC (4.0-10.0) 10^3/ uL RBC (4.1-5.3) 10^6/u L Hgb (11.7-16.6) g/dL Hct (42.0-52.0) % MCV (80-94) fL MCH (28.0-34.0) pg MCHC (30.0-36.0) g/dL RDW (12.1-15.1) % Plt Count (130-400) 10^3/c mm MPV (7.4-10.4) fL Neut % (Auto) % Lymph % (Auto) % [place] % (Auto) % Eos % (Auto) % Baso % (Auto) % Neut # (Auto) (1.8-7.7) 10^3/u L Lymph # (Auto) (0.8-4.8) 10^3/u L [place] # (Auto) (0.2-0.9) 10^3/u L Eos # (Auto) (0.0-0.8) 10^3/u L Baso # (Auto) (0.0-0.1) 10^3/u L Nucleated RBC % (a uto) % Nucleated RBCs # /100WBC ESR 39 H (0-10) mm/hr Sodium (136-145) mmol/L Potassium (3.5-5.1) mmol/L Chloride (98-107) mmol/L Carbon Dioxide (22-29) mmol/L Anion Gap (5-19) BUN (8-23) mg/dL Creatinine (0.7-1.2) mg/dL GFR Calculation Glucose (65-115) mg/dL Calculated Osmolal ity (285-295) mOsm/k g Lactate (0.5-2.2) mmol/L Calcium (8.5-10.5) mg/dL Discharge Plan Discharge Patient Disposition: Placed in Observation Admit Provider: Krystyna Murray Clinical Impression: Discitis of lumbar region Coding Level of Care Code ED 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
[2021-03-16 11:42] LABS: Anion Gap 11.6 (5-19); Blood Urea Nitrogen 16 mg/dL (8-23); Calcium 8.5 mg/dL (8.5-10.5); Carbon Dioxide 33 mmol/L (22-29); Chloride 98 mmol/L (98-107); Glucose 108 mg/dL (65-115); Osmolality Calculated 290 mOsm/kg (285-295); Potassium 3.6 mmol/L (3.5-5.1); Sodium 139 mmol/L (136-145)
[2021-03-16 11:43] LABS: Lactate (Lactic Acid level) 1.8 mmol/L (0.5-2.2)
[2021-03-16] MEDS: vancomycin 1,500 MG/300 ML PIGGYBACK 200 MG IV (11:57)
[2021-03-16 12:32] LABS: Erythrocyte Sedimentation Rate 39 mm/hr (0-10)
--- NOTE | 2021-03-16 15:51 | PM.HP ---
Providers/Chief Complaint Admitting Physician: Krystyna Murray MD Primary Care Provider: Juany Velazquez AGENCY OWNER-C Chief Complaint: SPINAL INFECTION History of Present Illness Marcelo Loyola is a 75 year old male who has recently been experiecing increased frequency of falls, gait unsteadiness which prompted a visit to see Dr. bennett as outpatient. Ct of the spine in January showed degenerative changes, follow up MRI shows possible discitis/osteomyelitis at the L4 lumbar vertebrae. From 03/14, labs were sent incl CRP, which was minimally elevated at 9, WBC was normal, however blood cx returned with 11/21 GPC in clusters, not further identified. patient denies any h/o fever or chills, weight loss. Denies any complaints of dyspnea, chest pain, palpitations, no known cardiac hardware, no joint replacement, 2 screws at level of ankle, no local signs at ankle. Review of Systems General: Reports: 10 or more systems reviewed and unremarkable except in HPI and below Const: Denies: fever(s), chills or body aches Eyes: Denies: change in vision, blurry vision or photophobia ENMT: Reports: hoarseness; Denies: throat pain, enlarged tonsils, odynophagia or nasal congestion Card: Denies: chest pain, palpitations, irregular heart rhythm, edema, swelling of feet/ankles, lightheadedness, pre-syncope, dyspnea on exertion or orthopnea Resp: Denies: dyspnea, productive cough, non-productive cough, wheezing, stridor, pain on inspiration, change in phlegm color, hemoptysis or chest congestion GI: Denies: abdominal pain, nausea, vomiting, hematemesis, coffee ground emesis, dysphagia, heartburn, diarrhea, constipation, GI cramping, change in stool character, hematochezia or melena : Denies: flank pain, dysuria, urinary frequency, urinary urgency, urinary hesitancy or hematuria Musc: Denies: neck pain, back pain, extremity pain, joint swelling, joint warmth or deformity Neuro: Denies: headache(s), numbness in extremities, weakness in extremities, sensory changes, difficulty walking, frequent falls, dizziness, vertigo, behavioral changes, Slurred speech present or seizure-like activity Psych: Denies: anxiety, depression, suicidal ideation or homicidal ideation Endo: Denies: polyuria, polydipsia, tired all the time, cold intolerance or hot flashes Stalin/Lymph: Denies: easy bruising or easy bleeding Medications/Allergies Home Medications Medication Instructions Recorded Confirmed Last Taken Type albuterol sulfate 90 mcg/actuation 2 puff INHALATION Q4H PRN gm 12/01/19 03/16/21 Unknown History aerosol inhaler allopurinol 300 mg tablet 300 mg PO DAILY@0600 tab 12/01/19 03/16/21 03/16/21 History aspirin 81 mg tablet,delayed 81 mg PO DAILY@0600 12/01/19 03/16/21 03/16/21 History release bumetanide 2 mg tablet 2 mg PO DAILY@0600 tab 12/01/19 03/16/21 03/16/21 History diclofenac sodium 75 mg 75 mg PO BID@06,18 12/01/19 03/16/21 03/16/21 History tablet,delayed release doxazosin 4 mg tablet 4 mg PO DAILY@1800 12/01/19 03/16/21 03/15/21 History gabapentin 600 mg tablet 600 mg PO BID@06,18 12/01/19 03/16/21 03/16/21 History ketotifen fumarate 0.025 % (0.035 1 drop OPHTHALMIC (EYE) BID 12/01/19 03/16/21 Unknown History %) eye drops metoprolol tartrate 50 mg tablet 50 mg PO DAILY@06 12/01/19 03/16/21 03/16/21 History misoprostol 200 mcg tablet 200 mcg PO BID@06,18 12/01/19 03/16/21 03/16/21 History montelukast 10 mg tablet 10 mg PO DAILY@06 12/01/19 03/16/21 03/16/21 History polyethylene glycol 3350 17 17 gm PO DAILY PRN gm 12/01/19 03/16/21 Unknown History gram/dose oral powder potassium chloride 10 mEq 10 meq PO DAILY@0600 cap 12/01/19 03/16/21 03/16/21 History capsule,extended release rosuvastatin 20 mg tablet 20 mg PO DAILY@1800 12/01/19 03/16/21 03/15/21 History tramadol 50 mg tablet 50 mg PO Q8H PRN 12/01/19 03/16/21 07/15/20 History ergocalciferol (vitamin D2) 50,000 unit PO Q7D 03/16/21 03/16/21 03/13/21 History gqhidqxycnz-zymhllpst-wcawxafu 1 ea INHALATION DAILY@06 03/16/21 03/16/21 03/16/21 History [Trelegy Ellipta] paroxetine HCl 30 mg PO DAILY@1800 03/16/21 03/16/21 03/15/21 History Allergies Allergy/AdvReac Type Severity Reaction Status Date / Time No Known Allergies Allergy Verified 03/14/21 13:30 PFSH Acute PFSH: Medical History Allergic rhinitis Benign essential HTN Chronic sinusitis CKD (chronic kidney disease) COPD (chronic obstructive pulmonary disease) Coronary arteriosclerosis in [place] artery Depression Edema Essential (primary) hypertension Gout Hyperlipemia Idiopathic peripheral neuropathy Nicotine dependence MONTEZ (obstructive sleep apnea) Osteoarthritis Palpitations SOB (shortness of breath) Surgical History H/O foot surgery H/O knee surgery History of surgery of head Family History Son Anxiety Psychiatric illness Depression Liver disease Thyroid disease Mother Lung disease Diabetes Hypertension Father Diabetes Brother Diabetes Hypertension Sister Hypertension Other Cancer Social History Smoking and tobacco status: current every day smoker smokeless tobacco Smokeless tobacco user: chewing tobacco Smokeless tobacco details: 0.5 Can Daily x 30 Years - Hx of 5 ciggs daily x 15 years - Quit in 1979 Second hand smoke exposure: Yes Smoking risk assessment/counseling performed?: Yes Alcohol intake: never Lives independently: Yes Household members: spouse Housing: House Marital status: service: No Current occupational status: disabled Pets and animals: Yes History of recent travel: No Current gender identity: Male Vitals/I&O/Wt Last Vital Signs Temp 97.8 F 03/16/21 15:37 Pulse 94 03/16/21 15:37 Resp 18 03/16/21 15:37 BP 134/72 03/16/21 15:37 Pulse Ox 93 03/16/21 15:37 03/16/21 03/16/21 03/16/21 06:59 14:59 22:59 Intake Total 300 / 300 Balance 300 / 300 Weight last 48 hrs Weight 125.191 kg Physical Exam Narrative: EXAM NARRATIVE: General: No acute distress, AO x3 HEENT: PERRLA, pupils bilaterally equal and reactive, pallors not present Chest: Normal vesicular breath sounds, no added sounds, equal good air entry bilaterally CVS: S1-S2 regular, no murmurs, no tachycardia, no gallops, no rubs Abdomen: Soft, nontender, no organomegaly, bowel sounds present Neuro: No focal deficits, no facial deformity, AO x3, power 5/5 in all limbs Extremities: no clubbing edema or cyanosis Data : 03/16/21 11:17 03/16/21 11:17 A&P Assessment and plan (1) Discitis of lumbar region: Discitis of lumbar veretbrae as noted on CT and MRI imaging Concern for inectious etiology given radiological appearnace and [ositive blood cx Esr not impressively raised to indicate chronic osteomyelitis, check ESR Blood cx 1/4 positive for GPC, needs to be followed to entirety to ascertain whether possible contaminant vs true bacteremia with pathogenic organism Check repeat blood cx Start on iv vancomycin empirically while awaiting identificaton of organism Further recommendations based on above data Status: Acute Attestations Medical Necessity Statement*: expect less than 2 midnight to follow + Blood cx, empiric vancomycin until results of above testing obtained Coding Level of Care Code Acute 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
[2021-03-16 16:46] LABS: Procalcitonin 0.15 ng/mL (0-0.5)
[2021-03-16] MEDS: atorvastatin 40 mg Tablet 80 MG PO (18:01)
[2021-03-16] MEDS: gabapentin 300 mg Capsule 600 MG PO (18:02)
[2021-03-16] MEDS: PARoxetine 20 mg Tablet 30 MG PO (18:03)
[2021-03-16] MEDS: doxazosin 4 mg Tablet PO (18:04)
[2021-03-16] MEDS: TRAMadol 50 mg Tablet PO (21:24)
[2021-03-17] VITALS (9 sets, daily range): BP systolic 103–129; BP diastolic 68–83; PULSE 64–79; RESP 15–18; TEMP 36.4–37.1; O2SAT 91–95
[2021-03-17] MEDS: vancomycin 1,500 MG/300 ML PIGGYBACK 200 MG IV (05:48)
[2021-03-17] MEDS: gabapentin 300 mg Capsule 600 MG PO ×2 (05:52→17:58)
[2021-03-17] MEDS: aspirin 81 mg EC Tablet PO (05:52)
[2021-03-17] MEDS: allopurinol 300 mg Tablet PO (05:52)
[2021-03-17] MEDS: montelukast sodium 10 mg Tablet PO (05:53)
[2021-03-17] MEDS: potassium chloride ER 10 mEq Tablet PO (05:53)
[2021-03-17] MEDS: metoprolol tartrate 50 mg Tablet PO (05:53)
[2021-03-17] MEDS: bumetanide 1 mg Tablet 2 MG PO (05:53)
[2021-03-17] MEDS: TRAMadol 50 mg Tablet PO ×2 (07:29→20:39)
[2021-03-17] MEDS: doxazosin 4 mg Tablet PO (17:58)
[2021-03-17] MEDS: atorvastatin 40 mg Tablet 80 MG PO (17:58)
[2021-03-17] MEDS: PARoxetine 20 mg Tablet 30 MG PO (17:58)
--- NOTE | 2021-03-17 19:05 | P.PN_ITS ---
Subjective Subjective: Interval history: no new interval events, GPC in clusters identified 11/21 with micrococcus , pending susceptibility Medications: Reviewed: Yes Vitals/I&O/Wt Last Vital Signs Temp 98.7 F 03/17/21 16:00 Pulse 71 03/17/21 16:00 Resp 16 03/17/21 16:00 BP 108/73 03/17/21 16:00 Pulse Ox 95 03/17/21 16:00 03/17/21 03/17/21 03/17/21 06:59 14:59 22:59 Intake Total 80 / 500 1260 / 1260 Output Total 475 / 725 400 / 400 200 / 600 Balance -395 / -225 860 / 860 -200 / 660 Weight last 48 hrs Weight 125.191 kg Physical Exam Narrative: EXAM NARRATIVE: General: No acute distress, AO x3 HEENT: PERRLA, pupils bilaterally equal and reactive, pallors not present Chest: Normal vesicular breath sounds, no added sounds, equal good air entry bilaterally CVS: S1-S2 regular, no murmurs, no tachycardia, no gallops, no rubs Abdomen: Soft, nontender, no organomegaly, bowel sounds present Neuro: No focal deficits, no facial deformity, AO x3, power 5/5 in all limbs Extremities: no clubbing edema or cyanosis Data : 03/16/21 11:17 03/16/21 11:17 Micro: Microbiology 03/16/21 16:35 Blood Culture - Preliminary Blood NEGATIVE TO DATE 03/16/21 11:47 Blood Culture - Preliminary Blood NEGATIVE TO DATE A&P Assessment and plan (1) Discitis of lumbar region: Discitis of lumbar veretbrae as noted on CT and MRI imaging Concern for inectious etiology given radiological appearnace and positive blood cx CRP and ESR with mild elevation Blood cx 11/21 positive for GPC, prelim identified as micorcoccus, await repeat cx and suscpetibility results continue iv vancomycin empirically while awaiting cx results Further recommendations based on above data Status: Acute Attestations Medical Necessity Statement*: need for iv vancomycin, pending identification and susceptibility of positive blood culture Coding Level of Care Code Acute Sql Database Programmer for [facility] Diagnoses Discitis of lumbar region M46.46
[2021-03-18 00:36] LABS: Vancomycin Trough 10.3 ug/mL (10-15)
[2021-03-18] MEDS: vancomycin 1,500 MG/300 ML PIGGYBACK 200 MG IV (00:43)
[2021-03-18 03:56] VITALS: BP 133/85; PULSE 86; RESP 18; TEMP 36.6; O2SAT 92
[2021-03-18] MEDS: metoprolol tartrate 50 mg Tablet PO (05:50)
[2021-03-18] MEDS: bumetanide 1 mg Tablet 2 MG PO (05:50)
[2021-03-18] MEDS: aspirin 81 mg EC Tablet PO (05:50)
[2021-03-18] MEDS: gabapentin 300 mg Capsule 600 MG PO (05:50)
[2021-03-18] MEDS: montelukast sodium 10 mg Tablet PO (05:50)
[2021-03-18] MEDS: potassium chloride ER 10 mEq Tablet PO (05:50)
[2021-03-18] MEDS: allopurinol 300 mg Tablet PO (05:50)
[2021-03-18 08:00] VITALS: BP 108/66; PULSE 76; RESP 17; TEMP 36.8; O2SAT 93
[2021-03-18] MEDS: TRAMadol 50 mg Tablet PO (10:31)
[2021-03-18 10:40] VITALS: PULSE 88; RESP 17; O2SAT 98
[2021-03-18 12:00] VITALS: BP 110/68; PULSE 84; RESP 16; TEMP 36.6; O2SAT 95
--- NOTE | 2021-03-18 14:30 | P.DS_ITS ---
Discharge Providers Date of Admission: 03/17/21 19:07 Date of Discharge: March 18, 2021 Attending Provider at Admission: Krystyna Murray MD Attending Provider at Discharge: Krystyna Murray MD Primary Care Provider: Juany Velazquez-Janak Diagnoses at Discharge Discharge Diagnosis (1) Discitis of lumbar region: Status: Acute Reason for Visit Reason for Visit: SPINAL INFECTION Hospital Course Hospital Course Marcelo Loyola is a 75 year old male who has recently been experiecing increased frequency of falls, gait unsteadiness which prompted a visit to see Dr. bennett as outpatient. Ct of the spine in January showed degenerative changes, follow up MRI shows possible discitis/osteomyelitis at the L4 lumbar vertebrae. From 03/14, labs were sent incl CRP, which was minimally elevated at 9, WBC was normal, however blood cx returned with 1/4 GPC in clusters, and patient was sent for inpatient evaluation due to concerns for infectious discitis/osteomyelitis. From 03/14, organism was eventually identified as micrococcus species in 1 out of 4 bottles, likely to be a contaminant. Blood culture repeated upon admission on 03/16 did not result in any bacterial growth. ESR was mildly elavted at 39, baseline from 2017 is at 19. Patient did not have any complaints of fever chills weight loss. Overall given only minimally elevated markers, negative blood cultures, initial positive blood culture with a common contaminant, lack of systemic signs, overall suspicion for osteomyelitis is low at this point. Discontinued empiric IV vancomycin. Patient's MR changes of discitis may be related to alternate etiology such as recurrent falls and back trauma that he is describing over the years. If still persisting concern for infection, can trend inflammatory markers including ESR CRP in 2 months and if increasing significantly, consideration may be given to acquiring bone biopsies and trial of antibiotics. Physical Exam Narrative: EXAM NARRATIVE: GEN: Awake, alert and oriented, no acute distress CVS: S1S2 N RS: CTA B/L Abd: Soft, nt/nd , bs+ ROLL FINISHER: no focal neuro deficits Discharge Data Data Completed and Pending: Pending at discharge Category Date Time Status Blood Culture Sta t Lab 03/16/21 16:35 Results Vancomycin Trough Timed Lab 03/19/21 11:00 Ordered Labs from last 24 hours 03/17/21 23:40 Vancomycin Trough 10.3 Vitals: Last Vital Signs Temp 97.9 F 03/18/21 12:00 Pulse 84 03/18/21 12:00 Resp 16 03/18/21 12:00 BP 110/68 03/18/21 12:00 Pulse Ox 95 03/18/21 12:00 Discharge Plan Discharge Patient Disposition: Home Condition: Stable Prescriptions: Continued ketotifen fumarate [[place]] 0.025 % (0.035 %) drops 1 drop ophthalmic (eye) BID RF: 0 allopurinol 300 mg tablet 300 mg PO DAILY@0600 RF: 0 aspirin [Adult Aspirin Regimen] 81 mg tablet,delayed release (DR/EC) 81 mg PO DAILY@0600 RF: 0 bumetanide 2 mg tablet 2 mg PO DAILY@0600 RF: 0 doxazosin 4 mg tablet 4 mg PO DAILY@1800 RF: 0 gabapentin 600 mg tablet 600 mg PO BID@ RF: 0 metoprolol tartrate 50 mg tablet 50 mg PO DAILY@06 RF: 0 polyethylene glycol 3350 [Miralax] 17 gram/dose powder 17 gm PO DAILY PRN (Reason: Constipation) RF: 0 misoprostol 200 mcg tablet 200 mcg PO BID@ RF: 0 montelukast [Singulair] 10 mg tablet 10 mg PO DAILY@06 RF: 0 potassium chloride 10 mEq capsule, extended release 10 meq PO DAILY@0600 RF: 0 albuterol sulfate [ProAir HFA] 90 mcg/actuation HFA aerosol inhaler 2 puff INHALATION Q4H PRN (Reason: Shortness Of Breath) RF: 0 rosuvastatin 20 mg tablet 20 mg PO DAILY@1800 RF: 0 tramadol 50 mg tablet 50 mg PO Q8H PRN (Reason: Pain) RF: 0 ergocalciferol (vitamin D2) 50,000 unit Tablet 50,000 unit PO Q7D RF: 0 paroxetine HCl 30 mg Tablet 30 mg PO DAILY@1800 RF: 0 Trelegy Ellipta 100-62.5-25 mcg blister with device 1 ea INHALATION DAILY@06 RF: 0 Changed diclofenac sodium 75 mg tablet,delayed release (DR/EC) 75 mg PO BID@ PRN (Reason: pain) Qty: 0 RF: 0 Discharge Orders: Discharge Order (Routine); Ordered 03/18/21 Ordered By: Krystyna Murray Referrals: Juany Velazquez, HOUSEHOLD REFRIGERATOR MECHANIC-C [Primary Care Provider] - Rudi Bennett DO [Physician] - Discharge Diet: Usual diet Discharge Activity: Resume usual activity Patient Instructions: Opioid Safety Discharge Attestations Time Spent in Discharge Care*: greater than 30 min Quality Metrics Clinical Quality Measures During this hospital stay, did patient experience: None Coding Level of Care Code Acute [facility] FW YONG note Diagnoses Discitis of lumbar region M46.46
--- NOTE | 2021-03-18 14:55 | PC.NURSE ---
Discharge instructions given to patient and . All questions answered. IV catheter removed, tip intact. Patient tolerated well. Patient discharged in stable condition.
[2021-03-18 14:56] VITALS: BP 110/68; PULSE 84; RESP 16; TEMP 36.6; O2SAT 95
--- NOTE | 2021-03-20 18:48 | PC.RESP ---
Smoking Cessation and Pulmonary Rehab information sent to patient.
== END 2021-03-18 15:02 | disposition home health service (06) | DRG 552 ==
LOC: ER 11:42 → MEDSURG 18:54
PROVIDERS: Admitting Provider Student in an Organized Health Care Education/Training Program; Emergency Provider Emergency Medicine; PCP Nurse Practitioner Family; Visit Provider Student in an Organized Health Care Education/Training Program
DX: M46.46 Discitis, unspecified, lumbar region (principal); I12.9 Hypertensive chronic kidney disease with stage 1 through stage 4 chronic kidney disease, or unspecified chronic kidney disease; N18.9 Chronic kidney disease, unspecified; J32.9 Chronic sinusitis, unspecified; J44.9 Chronic obstructive pulmonary disease, unspecified; I25.10 Atherosclerotic heart disease of native coronary artery without angina pectoris; F32.9 Major depressive disorder, single episode, unspecified; M10.9 Gout, unspecified; E78.5 Hyperlipidemia, unspecified; G60.9 Hereditary and idiopathic neuropathy, unspecified; F17.220 Nicotine dependence, chewing tobacco, uncomplicated; Z77.22 Contact with and (suspected) exposure to environmental tobacco smoke (acute) (chronic); G47.33 Obstructive sleep apnea (adult) (pediatric); M19.90 Unspecified osteoarthritis, unspecified site; Z79.82 Long term (current) use of aspirin; Z79.51 Long term (current) use of inhaled steroids
CPT/HCPCS: 36415; 80048; 80202; 83605; 84145; 85007; 85025; 85027; 85651; 86140; 87040; 87205; 96365; 97110; 97161; 97530; 99285; G0378; J3370

== ENCOUNTER 2021-04-11 20:00 | Outpatient (CLI) | payer MEDICARE, MEDICAID, SELFPAY | END 2021-04-11 20:01 | disposition home or self-care (01) | LOC: SLEEP 04-12 10:25 | PROVIDERS: PCP Nurse Practitioner Family; Visit Provider Internal Medicine Pulmonary Disease | DX: G47.33 Obstructive sleep apnea (adult) (pediatric) (principal) | CPT/HCPCS: 95811 ==

== ENCOUNTER → 2021-05-02 14:05 | Outpatient (BNVA) | payer MEDICARE, MEDICAID, SELFPAY | PROVIDERS: PCP Nurse Practitioner Family; Visit Provider Internal Medicine Pulmonary Disease | DX: J14 Pneumonia due to Hemophilus influenzae (principal); J90 Pleural effusion, not elsewhere classified; J44.9 Chronic obstructive pulmonary disease, unspecified; R06.02 Shortness of breath; G47.33 Obstructive sleep apnea (adult) (pediatric) | CPT/HCPCS: 71046 ==

== ENCOUNTER 2021-05-25 10:10 | Emergency (ER) | payer MEDICARE, MEDICAID, SELFPAY ==
[2021-05-25 10:12] VITALS: BP 118/79; PULSE 66; RESP 18; TEMP 36.6; O2SAT 93; BMI 36.7
--- NOTE | 2021-05-25 10:22 | W.ED.ARRPALP ---
HPI - Arrhythmia/Palpitations General: Chief Complaint: General Medical Stated Complaint: LOW HEART RATE/ LOW POTASSIUM/ WEAKNESS Time Seen by Provider: 05/25/21 10:13 History of Present Illness: HPI narrative: 75-year-old male presents emergency room via EMS with complaints of bradycardia. And generalized weakness. In the past he has had problems with hypokalemia associated bradycardia. Patient has a history of atrial fibrillation for which he is on aspirin and metoprolol. He states they have not recently changed his metoprolol dose has not missed any medications recently. He denies any chest pain. He does chronically wear oxygen at 2 L by nasal cannula. When I came in to see him he is not wearing his oxygen despite this his sats were in the mid to low 90s with 2 L he goes up to 98% his heart rate was 60 in the 60s when he first came to see him. MD complaint: palpitations and atrial fibrillation Onset (ago): hour(s) Duration: intermittent Severity: mild Context: occurred during rest Arrhythmia history: atrial fibrillation Associated symptoms: Reports short of breath; Deny anxiety, cough, diaphoresis, muscle cramps, nausea, paresthesias, pre-syncope, sense of impending doom, syncope or vomiting Review of Systems Const: Denies: diaphoresis ENMT: Denies: throat pain, ear or mastoid pain, nasal discharge or nasal congestion Card: Denies: syncope or pre-syncope Resp: Denies: dyspnea, productive cough or non-productive cough GI: Denies: nausea or vomiting : Denies: flank pain, dysuria, urinary frequency or urinary urgency Musc: Denies: muscle cramps Skin/Breast: Denies: rash or pruritus Psych: Denies: anxiety PFSH ED PFSH: Medical History (Updated 05/25/21 @ 13:56 by Yaw Gasca DO) Allergic rhinitis Benign essential HTN Chronic sinusitis CKD (chronic kidney disease) COPD (chronic obstructive pulmonary disease) Coronary arteriosclerosis in [place] artery Depression Edema Essential (primary) hypertension Gout Hyperlipemia Idiopathic peripheral neuropathy Nicotine dependence MONTEZ (obstructive sleep apnea) Osteoarthritis Palpitations SOB (shortness of breath) Surgical History H/O foot surgery H/O knee surgery History of surgery of head Family History Son Anxiety Psychiatric illness Depression Liver disease Thyroid disease Cancer Mother Lung disease Diabetes Hypertension CAD (coronary artery disease) Father Diabetes CAD (coronary artery disease) Cancer Brother Diabetes Hypertension Sister Hypertension Denies family history of Clotting disorder Dementia Chronic kidney disease (CKD) Suicide Anesthesia complication Bleeding disorder Stroke Social History Smoking and tobacco status: current every day smoker smokeless tobacco Smokeless tobacco user: chewing tobacco Smokeless tobacco details: 0.5 Can Daily x 30 Years - Hx of 5 ciggs daily x 15 years - Quit in 1979 Second hand smoke exposure: Yes Smoking risk assessment/counseling performed?: Yes Alcohol intake: never Lives independently: Yes Household members: spouse Housing: House Marital status: service: No Current occupational status: disabled Pets and animals: Yes History of recent travel: No Current gender identity: Male Physical Exam Const: GENERAL APPEARANCE: cooperative ORIENTATION/CONSCIOUSNESS: Yes awake, Yes oriented to person, Yes oriented to place and Yes oriented to time HENMT: COMMON NORMALS: normocephalic, atraumatic and hearing grossly normal bilaterally HEAD & SCALP: normocephalic and atraumatic Neck/C-Spine: COMMON NORMALS: no JVD Resp: COMMON NORMALS: normal respiratory effort, No retractions, No use of accessory muscles and clear to auscultation bilaterally AUSCULTATION: clear to auscultation bilaterally Cardio: COMMON NORMALS: no JVD, regular rate, regular rhythm and No murmurs present (Cardio) RATE: regular rate RHYTHM: regular rhythm GI: COMMON NORMALS: Soft to palpation and No hepatosplenomegaly present AUSCULTATION: Yes normoactive bowel sounds PALPATION: Yes Soft to palpation, No Tenderness to palpation present (GI), No Guarding due to palpation present (GI) and Yes No hepatosplenomegaly present Extremity: COMMON NORMALS: normal to inspection, capillary refill normal, no clubbing, cyanosis or edema, no calf tenderness and no pedal edema Neuro: SENSORIUM/ORIENTATION: Yes oriented to person, Yes oriented to place and Yes oriented to time Skin: COMMON NORMALS: no rashes or lesions noted GENERAL SKIN EXAM: no rashes or lesions noted Course Vital Signs: Vital signs: Vital Signs Temperature 97.9 F 05/25/21 10:12 Pulse Rate 62 07/08/21 14:24 Respiratory Rate 18 05/25/21 14:24 Blood Pressure 139/80 05/25/21 14:24 Pulse Oximetry 94 05/25/21 14:24 MDM - Arrhythmia/Palpitations MDM Narrative: Medical decision making narrative: Troponin is negative. We will go and discharge him home we will put him on a event monitor to further evaluate he is currently taking metoprolol this may need to be decreased he has had this problem before and Dr. Torre evidently has not made any changes. Am suspicious that he does definitely need the Toprol I am hesitant to stop it he might be better served by stopping the doxazosin if this is just an orthostatic issue although it does sound like it is more of a rate issue. We will have him follow-up with Dr. Torre early next week. Lab Data: Labs: Lab Results 05/25/21 05/25/21 05/25/21 Range/Units 10:40 10:40 10:40 WBC 7.6 (4.0-10.0) 10^3/ uL RBC 4.23 (4.1-5.3) 10^6/u L Hgb 12.8 (11.7-16.6) g/dL Hct 40.1 L (42.0-52.0) % MCV 94.8 H (80-94) fL MCH 30.3 (28.0-34.0) pg MCHC 31.9 (30.0-36.0) g/dL RDW 12.9 (12.1-15.1) % Plt Count 182 (130-400) 10^3/c mm MPV 11.0 H (7.4-10.4) fL Neut % (Auto) 67.7 % Lymph % (Auto) 22.3 % [place] % (Auto) 8.1 % Eos % (Auto) 0.8 % Baso % (Auto) 0.8 % Neut # (Auto) 5.13 (1.8-7.7) 10^3/u L Lymph # (Auto) 1.7 (0.8-4.8) 10^3/u L [place] # (Auto) 0.6 (0.2-0.9) 10^3/u L Eos # (Auto) 0.1 (0.0-0.8) 10^3/u L Baso # (Auto) 0.1 (0.0-0.1) 10^3/u L Nucleated RBC % (a uto) 0 % Nucleated RBCs # 0.0 /100WBC Sodium 141 (136-145) mmol/L Potassium 4.6 (3.5-5.1) mmol/L Chloride 102 (98-107) mmol/L Carbon Dioxide 29 (22-29) mmol/L Anion Gap 14.6 (5-19) BUN 14 (8-23) mg/dL Creatinine 1.0 (0.7-1.2) mg/dL GFR Calculation Not Reportable Glucose 77 (65-115) mg/dL Calculated Osmolal ity 291 (285-295) mOsm/k g Calcium 8.9 (8.5-10.5) mg/dL Total Bilirubin 0.3 (0.15-1.2) mg/dL AST 21 (0-40) U/L ALT 17 (0-41) U/L Alkaline Phosphata se 174 H (40-130) IU/L Troponin T Baselin e 32 H (0-15) ng/L Troponin T 120 Min [place] (0-15) ng/L Delta Troponin T (0-10) ABS# Total Protein 6.0 L (6.6-8.7) g/dL Albumin 3.8 (3.5-5.2) g/dL Globulin 2.2 (1.3-4.6) g/dL 05/25/21 Range/Units 12:42 WBC (4.0-10.0) 10^3/ uL RBC (4.1-5.3) 10^6/u L Hgb (11.7-16.6) g/dL Hct (42.0-52.0) % MCV (80-94) fL MCH (28.0-34.0) pg MCHC (30.0-36.0) g/dL RDW (12.1-15.1) % Plt Count (130-400) 10^3/c mm MPV (7.4-10.4) fL Neut % (Auto) % Lymph % (Auto) % [place] % (Auto) % Eos % (Auto) % Baso % (Auto) % Neut # (Auto) (1.8-7.7) 10^3/u L Lymph # (Auto) (0.8-4.8) 10^3/u L [place] # (Auto) (0.2-0.9) 10^3/u L Eos # (Auto) (0.0-0.8) 10^3/u L Baso # (Auto) (0.0-0.1) 10^3/u L Nucleated RBC % (a uto) % Nucleated RBCs # /100WBC Sodium (136-145) mmol/L Potassium (3.5-5.1) mmol/L Chloride (98-107) mmol/L Carbon Dioxide (22-29) mmol/L Anion Gap (5-19) BUN (8-23) mg/dL Creatinine (0.7-1.2) mg/dL GFR Calculation Glucose (65-115) mg/dL Calculated Osmolal ity (285-295) mOsm/k g Calcium (8.5-10.5) mg/dL Total Bilirubin (0.15-1.2) mg/dL AST (0-40) U/L ALT (0-41) U/L Alkaline Phosphata se (40-130) IU/L Troponin T Baselin e (0-15) ng/L Troponin T 120 Min [place] 29.77 H (0-15) ng/L Delta Troponin T -2.23 L (0-10) ABS# Total Protein (6.6-8.7) g/dL Albumin (3.5-5.2) g/dL Globulin (1.3-4.6) g/dL Discharge Plan Discharge Patient Disposition: Home Clinical Impression: Palpitations, Benign essential HTN Condition: Stable Prescriptions: No Action allopurinol 300 mg tablet 300 mg PO DAILY@0600 RF: 0 aspirin [Adult Aspirin Regimen] 81 mg tablet,delayed release (DR/EC) 81 mg PO DAILY@0600 RF: 0 doxazosin 4 mg tablet 4 mg PO DAILY@1800 RF: 0 gabapentin 600 mg tablet 600 mg PO BID@ RF: 0 metoprolol tartrate 50 mg tablet 50 mg PO DAILY@06 RF: 0 polyethylene glycol 3350 [Miralax] 17 gram/dose powder 17 gm PO DAILY PRN (Reason: Constipation) RF: 0 misoprostol 200 mcg tablet 200 mcg PO BID@ RF: 0 potassium chloride 10 mEq capsule, extended release 10 meq PO DAILY@0600 RF: 0 rosuvastatin 20 mg tablet 20 mg PO DAILY@1800 RF: 0 tramadol 50 mg tablet 50 mg PO Q8H PRN (Reason: Pain) RF: 0 bumetanide 1 mg tablet 1 mg PO DAILY 30 Days Qty: 30 RF: 5 (DME) AFO left lower extremity See Rx Instructions .Route .MEDSUPPLY Qty: 1 RF: 0 Perforomist 20 mcg/2 mL solution for nebulization 2 ml inhalation Q12H Qty: 60 RF: 3 paroxetine HCl 30 mg Tablet 30 mg PO DAILY@1800 RF: 0 diclofenac sodium 75 mg tablet,delayed release (DR/EC) 75 mg PO BID@06,18 PRN (Reason: pain) Qty: 0 RF: 0 tizanidine 4 mg tablet 4 mg PO Q6H PRN (Reason: MUSCLE SPASMS) RF: 0 Mucus Relief ER 600 mg tablet extended release 12hr 600 mg PO Q12H RF: 0 Discharge Orders: Discharge ED (Routine); Ordered 05/25/21 Ordered By: Yaw Gasca Referrals: Juany Velazquez, [facility] [Primary Care Provider] - Discharge Diet: Usual diet Discharge Activity: Resume usual activity Patient Instructions: Opioid Safety Activity Restrictions/Additional Instructions: Case Management will call to set up a 48 hours Holter monitor Coding Level of Care Code ED [employer] for Alvaro Fwd Exam Comprehensive
--- NOTE | 2021-05-25 10:31 | ECG_ITS ---
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 Measurements Intervals [place] Rate: 58 P: -5 OK: 172 QRS: 6 QRSD: 89 T: 97 QT: 442 QTc: 436 Interpretive Statements SINUS BRADYCARDIA WITH FREQUENT SUPRAVENTRICULAR PREMATURE COMPLEXES LOW QRS VOLTAGE IN PRECORDIAL LEADS [QRS DEFLECTION < 1.0 mV IN CHEST LEADS] NONSPECIFIC T-WAVE ABNORMALITY Compared to ECG 01/17/2021 20:02:49 Low QRS voltage now present Sinus rhythm no longer present Ventricular premature complex(es) no longer present T-wave abnormality still present Electronically Signed On 05-26-2021 6:16:06 CDT by Elba Polo M.D. [id number]
--- NOTE | 2021-05-25 10:31 | XR_ITS ---
WS: [id number] Portable AP upright chest, 05/25/2021 Clinical Data: dyspnea/cough Comparison: PA chest, 05/02/2021. Findings: No nodules or masses are seen. The heart is normal. The pulmonary vascularity is not increa sed. No pneumonia or pneumothorax is seen. The right diaphragm remains elevated. The aortic arch and descending aorta show tortuosity. There are monitor leads on the chest wall. There is osteoarthritis of both shoulders. XR/XR chest 1V portable [id number] Impression: 1. Atherosclerosis. 2. Elevated right diaphragm.
[2021-05-25 11:03] LABS: Basophils # 0.1 10^3/uL (0.0-0.1); Basophils % 0.8 %; Eosinophils # 0.1 10^3/uL (0.0-0.8); Eosinophils % 0.8 %; Hematocrit 40.1 % (42.0-52.0); Hemoglobin 12.8 g/dL (11.7-16.6); Lymphocytes # 1.7 10^3/uL (0.8-4.8); Lymphocytes % 22.3 %; Mean Corpuscular HGB Conc 31.9 g/dL (30.0-36.0); Mean Corpuscular Hemoglobin 30.3 pg (28.0-34.0); Mean Corpuscular Volume 94.8 fL (80-94); Monocytes # 0.6 10^3/uL (0.2-0.9); Monocytes % 8.1 %; Neutrophils # 5.13 10^3/uL (1.8-7.7); Neutrophils % 67.7 %; Nucleated Red Blood Cells % 0 %; Platelet Count 182 10^3/cmm (130-400); Red Blood Count 4.23 10^6/uL (4.1-5.3); Red Cell Distribution Width 12.9 % (12.1-15.1); White Blood Count 7.6 10^3/uL (4.0-10.0)
[2021-05-25 11:14] VITALS: BP 130/90; PULSE 65; RESP 18; O2SAT 96
[2021-05-25 11:21] LABS: Troponin(5th) Baseline 32 ng/L (0-15)
[2021-05-25 11:24] LABS: Alanine Aminotransferase 17 U/L (0-41); Albumin Level 3.8 g/dL (3.5-5.2); Alkaline Phosphatase 174 IU/L (40-130); Aspartate Amino Transferase 21 U/L (0-40); Blood Urea Nitrogen 14 mg/dL (8-23); Calcium 8.9 mg/dL (8.5-10.5); Carbon Dioxide 29 mmol/L (22-29); Chloride 102 mmol/L (98-107); Globulin 2.2 g/dL (1.3-4.6); Glucose 77 mg/dL (65-115); Osmolality Calculated 291 mOsm/kg (285-295); Sodium 141 mmol/L (136-145); Total Bilirubin 0.3 mg/dL (0.15-1.2)
[2021-05-25 11:34] LABS: Anion Gap 14.6 (5-19); Potassium 4.6 mmol/L (3.5-5.1)
--- NOTE | 2021-05-25 12:31 | ECG_ITS ---
[facility] Test Date: 2021-05-25 Pat Name: Marcelo Loyola Department: Room: Gender: Male Change Consultant: : 1945 Requested By: Yaw Chapa Order Number: [id number] Shannon MD: Elba Polo M.D. Measurements Intervals [place] Rate: 58 P: 67 LA: 186 QRS: -5 QRSD: 97 T: 110 QT: 457 QTc: 450 Interpretive Statements SINUS BRADYCARDIA WITH OCCASIONAL SUPRAVENTRICULAR PREMATURE COMPLEXES INFERIOR MYOCARDIAL INFARCTION [40+ ms Q WAVE AND/OR ST/T ABNORMALITY IN II/aVF], PROBABLY OLD Compared to ECG 05/25/2021 10:45:56 Myocardial infarct finding now present T-wave abnormality no longer present Electronically Signed On 05-26-2021 6:38:58 CDT by Elba Polo M.D. [id number]
[2021-05-25 13:00] VITALS: BP 114/78; PULSE 68; RESP 16; O2SAT 94
[2021-05-25 13:12] LABS: Troponin 5 2HR 29.77 ng/L (0-15)
[2021-05-25 13:17] LABS: Troponin 5 2HR Delta -2.23 ABS# (0-10)
[2021-05-25 14:24] VITALS: BP 139/80; PULSE 62; RESP 18; O2SAT 94
--- NOTE | 2021-05-26 09:11 | DCPLANNER ---
manager of housekeeping had message to schedule an outpatient appointment for patient with [facility] for a 48 hour halter monitor. manager of housekeeping faxed signed order to [facility], will call for appointment information. Clinic will call patient with appointment information.
--- NOTE | 2021-05-30 15:24 | DCPLANNER ---
aquatic facility manager called [facility] to confirm if an appointment had been scheduled for patient for a 48 hour halter monitor. aquatic facility manager spoke with [facility], was told that 48 hour monitor has not been scheduled at this time. A follow up appointment is scheduled for Sunday, June 20, 2021 at 2:[address] Torre. aquatic facility manager called patient and gave patient appointment information. Clinic will schedule an appointment for the halter monitor and will call patient with the appointment information.
--- NOTE | 2021-06-09 09:48 | DCPLANNER ---
Patient had a follow up appointment scheduled for 06.08.[address] Torre at [facility] - patient did attend appointment. Patient had a follow up appointment scheduled for 06.08.21 for a tere monitor at [facility] - patient did attend appointment.
== END 2021-05-25 14:25 | disposition home or self-care (01) ==
PROVIDERS: Emergency Provider Family Medicine; PCP Nurse Practitioner Family
DX: R00.2 Palpitations (principal); I10 Essential (primary) hypertension; Z79.82 Long term (current) use of aspirin; J44.9 Chronic obstructive pulmonary disease, unspecified; E78.5 Hyperlipidemia, unspecified; F17.210 Nicotine dependence, cigarettes, uncomplicated; F17.220 Nicotine dependence, chewing tobacco, uncomplicated
CPT/HCPCS: 36415; 71045; 80053; 84484; 85025; 93005; 99284

== ENCOUNTER → 2021-06-08 16:08 | Outpatient (BNVA) | payer MEDICARE, MEDICAID, SELFPAY | PROVIDERS: PCP Nurse Practitioner Family; Visit Provider Internal Medicine Cardiovascular Disease | DX: I50.33 Acute on chronic diastolic (congestive) heart failure (principal); R06.02 Shortness of breath; I10 Essential (primary) hypertension | CPT/HCPCS: 80048; 83880 ==